=== PATIENT | male | born 1995 | race Caucasian/White ===

== ENCOUNTER → 2021-11-10 13:21 | Outpatient (BNVA) | payer MEDICAID, SELFPAY | PROVIDERS: PCP Nurse Practitioner Family; Visit Provider Surgery | DX: Z13.89 Encounter for screening for other disorder (principal) ==

== ENCOUNTER → 2021-12-13 14:42 | Outpatient (BNVA) | payer MEDICAID, SELFPAY | PROVIDERS: PCP Nurse Practitioner Family; Visit Provider Surgery | DX: K40.20 Bilateral inguinal hernia, without obstruction or gangrene, not specified as recurrent (principal) | CPT/HCPCS: 99202 ==

== ENCOUNTER 2022-01-18 15:06 | Outpatient (REF) | payer MEDICAID, SELFPAY ==
--- NOTE | ~2022-01-18 | US_ITS ---
EXAMINATION: US SOFT TISSUE CLINICAL INFORMATION: 26-year-old male with fullness right groin, discomfort left groin. History hernia repair over 10 years ago. COMPARISON: None TECHNIQUE: Ultrasound of the bilateral groin is performed using linear transducer. Patient is imaged supine and upright. Patient imaged without and with Valsalva. FINDINGS: There is no cystic or solid mass. No skin thickening or edema tracking in soft tissue planes. No lymphadenopathy demonstrated. Mild anterior convexity by 1 cm is demonstrated right inguinal region approximately 3.3 cm across. It is uncertain if this is a hernia or mild laxity near the inguinal ring. Focal anterior convexity seen left inguinal region by under 1 cm and 1.6 cm across. It is uncertain if this is a hernia or mild laxity near the inguinal ring. US/US pelvic limited IMPRESSION: Broad-based anterior convexity right inguinal region and focal anterior convexity left inguinal region. It is uncertain if the bilateral findings represent recurrent hernia or mild laxity near the inguinal ring. Consider CT or MRI for further characterization.
== END 2022-01-18 15:07 | disposition home or self-care (01) ==
LOC: HO.HMGCX 15:06
PROVIDERS: Visit Provider Surgery
DX: K40.20 Bilateral inguinal hernia, without obstruction or gangrene, not specified as recurrent (principal)
CPT/HCPCS: 76857

== ENCOUNTER → 2022-02-02 09:12 | Outpatient (BNVA) | payer MEDICAID, SELFPAY | PROVIDERS: PCP Nurse Practitioner Family; Visit Provider Surgery | DX: K40.90 Unilateral inguinal hernia, without obstruction or gangrene, not specified as recurrent (principal) | CPT/HCPCS: 99212 ==

== ENCOUNTER 2022-02-06 07:17 | Day surgery (SDC) | payer MEDICAID, SELFPAY ==
[2022-02-06] VITALS (9 sets, daily range): BP systolic 135–169; BP diastolic 94–111; PULSE 62–97; RESP 16–24; TEMP 36.1–37.1; O2SAT 95–100; BMI 42.0
[2022-02-06] MEDS: Lactated Ringers 1,000 ML 100 ML IVCONT (08:03)
--- NOTE | 2022-02-06 08:20 | HO.ANESPROP2 ---
HPI - Anesthesia Eval Consult details Narrative: 26 yo male patient for Right Inguinal hernia repair with mesh PMFSH Active Problems Active Problems: All Active Problems (Updated 02/02/22 @ 09:55 by Andrew Thomas MD) Right inguinal hernia (Acute) Bilateral inguinal hernia (Acute) Thrombocytosis (Acute) Snoring with h/o apneic episodes.Never had sleep study Morbid obesity No previous blood transfusions H/o bilateral shoulder pain Pre-diabetes Past Medical History Medical History Acanthosis nigricans Agoraphobia Generalized anxiety disorder with panic attacks Hx of scoliosis Hyperlipidemia Sickle cell trait Family History Family History Mother Uterine cancer Family history of problems with anesthesia: No Surgical History Surgical History History of bilateral inguinal hernia repair History of oral surgery History of Problems with Anesthesia: No Social History Social History Household Members: Family Housing: House Alcohol intake: current Alcohol intake frequency: holidays/special occasions only Patient Tobacco Use Status: Never used Tobacco Second Hand Smoke Exposure: No Use of substances other than those prescribed or required for medical reasons: No Are you DNR?: No Advance Directives: No Advance Directives Information Provided: Yes Advance Directives on File: No Current occupational status: unemployed Meds Allergies Allergy/AdvReac Type Severity Reaction Status Date / Time lactose Allergy Diarrhea Verified 02/02/22 09:18 Active Medications: Current Medications Lactated Ringer's (Lr) 1,000 mls @ 100 mls/hr IVCONT .Q10H KATIE Last Admin: 02/06/22 08:03 Dose: 100 mls/hr Home Medications Medication Instructions Recorded Confirmed Last Taken Type Vitamin D3 25 mcg PO DAILY 12/13/21 02/02/22 Unknown History blood pressure kit med and lrg 12/13/21 02/02/22 Unknown History divalproex 250 mg tablet,extended 2 tab PO DAILY 12/13/21 02/02/22 Unknown History release 24 hr famotidine 10 mg PO DAILY 12/13/21 02/02/22 Unknown History hydrocortisone 1 % topical cream 1 ea topical BID PRN Dry Skin 12/13/21 02/02/22 Unknown History with perineal applicator hydroxyzine HCl 10 mg PO BID PRN Anxiety 12/13/21 02/02/22 Unknown History ibuprofen 600 mg tablet 1 tab PO TID 12/13/21 02/02/22 Unknown History lisinopril 10 mg tablet 1 tab PO DAILY 12/13/21 02/02/22 Unknown History Exam Exam Date and Time: February 06, 2022 0820 Height,Weight and Vital Signs: Height 5 ft 11 in Weight 136.531 kg Last Vital Signs Temp 97.0 F 02/06/22 07:58 Pulse 88 02/06/22 07:58 Resp 16 02/06/22 07:58 BP 144/94 H 02/06/22 07:58 Pulse Ox 98 02/06/22 07:58 O2 Del Method 02/06/22 07:58 Airway Mallampati Class: III (Fat neck) TM Dist: >3cm Neck ROM: Full Loose/Missing/Broken Teeth: No Heart: RRR Lungs: CTAB Assessment and Plan Assessment Anesthesia Assessment: Anesthesia Plan Discussed and Chart Reviewed Final Anesthetic Review Family History of Problems with Anesthesia: No History of Problems with Anesthesia: No NPO: Yes ASA Class: III Final Preanesthetic Review: No Changes in Pt Med Stat, Meds/Allgs Chart Reviewed, Consent Obtained/Reviewed and Anes Risks/Benef Reviewed Patient Risk: Intermediate Procedure Risk: Low Assessment/Block/Sedation in SS: Assess/Block/Sedation-SS Anesthetic Plan Anesthetic Plan: GA Disposition: Standard PACU
--- NOTE | 2022-02-06 08:24 | MHC.SHP ---
Pre-Procedural Eval Section A Date of Service: 02/06/22 The patient is an INPATIENT: No Changes since office visit: Yes Patient answered all questions; No Cold of Flu in the past 2 weeks, No New Medical Problems and No Changes in Medication The History & Physical has been completed within 30 days and I have reviewed it.: Yes Section B Chief Complaint: Unilateral inguinal hernia, without obstruction Allergies: Allergies Allergy/AdvReac Type Severity Reaction Status Date / Time lactose Allergy Diarrhea Verified 02/02/22 09:18 Plan Diagnosis/Plan: Unchanged I have reviewed the history and physical and performed a pertinent physical examination on my patient. No changes have occurred unless specified.
--- NOTE | 2022-02-06 10:13 | W.PM.OPN ---
Operative Note Operative Note Date of Service: 02/06/22 Narrative: Preoperative diagnosis: recurrent right inguinal hernia Postoperative diagnosis: same Procedure: repair of recurrent right inguinal hernia with mesh Surgeon: Andrew Thomas MD Hospice Art Therapist: Adrianna Ramsay PA-C; GEETA Helton Anesthesia: general LMA Indications for procedure: 26-year-old male patient with a previous history of a bilateral inguinal hernia as a child now presenting with a painful lump in the right groin. The hernia increases in size with lifting and straining and reduces with light pressure. Operative findings: Indirect right inguinal hernia sac Specimen: hernia sac right side Estimated blood loss: 5 mL Complications: none Procedure details: patient was brought to the OR placed in the supine position. After administering general anesthesia the patient's abdomen was prepped with ChloraPrep and draped in a sterile fashion. A surgical time-out was called the consent confirmed. Patient received preoperative antibiotics and Venodyne boots were in place. Local anesthesia consisting of 0.5% Sensorcaine was then infiltrated over the right inguinal ligament. Incision was then made over the right inguinal ligament carried out through subcutaneous tissue and up to the external oblique aponeurosis. Additional local was infiltrated behind the aponeurosis. This was then incised with a scalpel wide with the Metzenbaum scissors. The spermatic cord was then dissected free from the surrounding inguinal canal and retracted with a [place] drain. The floor of the inguinal canal was found to be intact without a direct hernia. Fibers of the cremasteric muscle were then and a indirect sac identified this was dissected free from the surrounding cord structures down to the internal ring. The sac was opened. Incarcerated omental fat was noted within the hernia sac. This was freed from the surrounding sac and return to the abdominal cavity. The sac was then ligated at the base and resected. The sac was sent as a specimen to pathology. The internal oblique aponeurosis and transversalis aponeurosis were then incised with electrocautery in the preperitoneal space entered. This was then widened with a open Ray-Parminder sponge. A large extended PHS mesh was then obtained. The circular underlay was deployed into the preperitoneal space. The overlay was then secured with the largest limb extending laterally. The overlay was secured to the pubic tubercle, conjoined tendon, and shelving edge of the inguinal ligament using 0 Polysorb sutures. A slit was made in the mesh in the mesh wrapped around the spermatic cord at the internal ring. This was then secured to the shelving edge using the 0 Polysorb suture. The internal ring was loose enough to allow the tip of an index finger. Wounds were then irrigated with saline solution and suctioned dry. No bleeding could be identified. 4.5 mL of Zenrelef was then instilled over the mesh. External oblique aponeurosis was then closed using a running 2 0 Polysorb suture. Additional 4 mL of Zenrelef was then applied over the external oblique aponeurosis. Rio's tissue was then reapproximated using interrupted 3-0 Polysorb sutures. Dermis was reapproximated using interrupted 3-0 Polysorb sutures. Skin was closed using a running subcuticular 4-0 Polysorb suture. Steri-Strips, 2 x 2 gauze and Tegaderm were then applied. The patient tolerated the procedure well. Sponge, instrument, and needle counts reported as correct. The patient was transferred to PACU in stable condition.
[2022-02-06] MEDS: Acetaminophen 325 MG TABLET 975 MG PO (11:03)
[2022-02-06] MEDS: oxyCODONE HCl Immed Release 5 MG TABLET 10 MG PO (11:03)
[2022-02-06] MEDS: fentaNYL citrate/PF 100 MCG/2 ML VIAL 50 MCG IVPUSH (11:08)
== END 2022-02-06 12:42 | disposition home or self-care (01) ==
PROVIDERS: PCP Nurse Practitioner Family; Visit Provider Surgery
PROC: (CPT 49521; principal; 2022-02-06 09:10)
DX: K40.91 Unilateral inguinal hernia, without obstruction or gangrene, recurrent (principal); L83 Acanthosis nigricans; E78.5 Hyperlipidemia, unspecified; D57.3 Sickle-cell trait; F40.01 Agoraphobia with panic disorder; F41.1 Generalized anxiety disorder; Z79.899 Other long term (current) drug therapy; Z98.890 Other specified postprocedural states
CPT/HCPCS: 49521; 88302; C1781; C9088; J0690; J2250; J2405; J2795; J3010

== ENCOUNTER 2022-06-23 04:06 | Emergency (ER) | payer MEDICAID, SELFPAY ==
[2022-06-23 04:15] VITALS: BP 142/96; PULSE 81; RESP 20; TEMP 36.5; O2SAT 97; BMI 41.8
[2022-06-23 04:35] LABS: IDNOW Serial# 6674DD1D; Strep A Nucleic Acid Negative (Negative)
[2022-06-23 05:03] LABS: Influenza A PCR NEGATIVE (Negative); Influenza B PCR NEGATIVE (Negative); Resp Syncy Virus RNA Qual PCR NEGATIVE (Negative); SARS COV2 PCR INHOUSE NEGATIVE (Negative)
--- OUTSIDE RECORDS SUMMARY | 2022-06-23 05:12 | XMS_ITS | Continuity of Care Document ---
:1995 Author Organization [facility] Address [address] [place] [id number] Care Team Providers Name Role Phone Marysol RUIZ, Kinjal Primary Care Physician Encounter [facility] [place] Date(s): 03/14/22 - 04/19/[address] [id number] Attending Physician: Kinjal Gregg NP Admitting Physician: Kinjal Gregg NP Referring Physician: Kinjal Gregg NP Patient Care team information PersonnelName: Kinjal Gregg NP Address: Address: [address] [place] [id number]
--- NOTE | 2022-06-23 06:03 | ED_ITS ---
HPI - URI/Sore Throat General Chief Complaint: Upper Respiratory Symptoms Stated Complaint: cough Time Seen by Provider: 06/23/22 05:59 Source: patient Mode of arrival: ambulatory Limitations: no limitations History of Present Illness HPI Narrative: Patient complaining of cold symptoms congestion cough for last 2- 3 days no fever no chills no shortness of breath Related Data Home Medications Medication Instructions Recorded Confirmed Vitamin D3 25 mcg PO DAILY 12/13/21 03/22/22 blood pressure kit med and lrg 12/13/21 03/22/22 divalproex 250 mg tablet,extended 2 tab PO DAILY 12/13/21 03/22/22 release 24 hr famotidine 10 mg PO DAILY 12/13/21 03/22/22 hydrocortisone 1 % topical cream 1 ea topical BID PRN Dry Skin 12/13/21 03/22/22 with perineal applicator hydroxyzine HCl 10 mg PO BID PRN Anxiety 12/13/21 03/22/22 ibuprofen 600 mg tablet 1 tab PO TID 12/13/21 03/22/22 lisinopril 10 mg tablet 1 tab PO DAILY 12/13/21 03/23/22 Previous Rx's Medication Instructions Recorded ferrous sulfate 325 mg (65 mg 325 mg PO DAILY #90 tabs 03/22/22 iron) tablet (iron) amoxicillin 875 mg-potassium 1 tab PO BID #20 tabs 06/23/22 clavulanate 125 mg tablet benzonatate 200 mg capsule 200 mg PO TID PRN cough #30 caps 06/23/22 Allergies Allergy/AdvReac Type Severity Reaction Status Date / Time lactose Allergy Diarrhea Verified 06/23/22 04:18 Review of Systems Review of Systems: Yes all other systems are reviewed and are negative [facility] Past Medical History Medical History Acanthosis nigricans Agoraphobia Generalized anxiety disorder with panic attacks Hx of scoliosis Hyperlipidemia Sickle cell trait Surgical History History of bilateral inguinal hernia repair History of oral surgery History of right inguinal hernia repair (02/06/22) Family History Family History Mother Uterine cancer Social History Social History Household Members: Family Housing: House Alcohol intake: current Alcohol intake frequency: holidays/special occasions only Patient Tobacco Use Status: Never used Tobacco Second Hand Smoke Exposure: No Advance Directives: No Advance Directives Information Provided: Yes Current occupational status: unemployed Physical Exam Vital Signs: Vital Signs: Last Vital Signs Temp 97.7 F 06/23/22 04:15 Pulse 81 06/23/22 04:15 Resp 20 06/23/22 04:15 BP 142/96 H 06/23/22 04:15 Pulse Ox 97 06/23/22 04:15 O2 Del Method 06/23/22 04:15 BMI result Body Mass Index 41.8 Appearance: Alert. Oriented X3. No acute distress. Eyes: PERRLA, No Nystagmus ENT: Pharynx normal. Oral Mucosa moist Neck: Normal inspection. Neck supple. CVS: Normal heart rate and rhythm. Pulses normal. Respiratory: No respiratory distress. Equal air entry bilateral, no wheezing/r ales/rhonchi Abdomen: Soft and nontender. Bowel sounds are present, no mass palpable, no CVA tenderness Skin: Skin warm and dry. Normal skin color. Normal skin turgor. Extremities: No lower extremity edema. No calf tenderness Neuro: Oriented X 3. No motor deficit. No sensory deficit.No cerebellar signs , cranial nerves II-XII intact Medical Decision Making Medical Decision Making [facility] Narrative: Patient has acute bronchitis discharge patient home on Augmentin and cough drops Lab Data [facility] Lab Attestation statement: I reviewed the patient's lab results. Labs: Lab Results 06/23/22 06/23/22 Range/Units 04:21 04:21 Influenza Type A (PCR) NEGATIVE (Negative) Influenza Type B (PCR) NEGATIVE (Negative) RSV RNA Qual (PCR) NEGATIVE (Negative) SARS-CoV-2 RNA (RT-PCR) NEGATIVE (Negative) S. pyogenes GrpA DIMAS Negative (Negative) Discharge Plan Discharge Clinical Impression: Bronchitis Patient Disposition: Home, Self-Care Instructions: Acute Bronchitis (ED) Additional Instructions: Take antibiotic as prescribed Cough drops as prescribed Prescriptions: New benzonatate 200 mg capsule 200 mg PO TID PRN (Reason: cough) Qty: 30 0RF amoxicillin-pot clavulanate 875-125 mg tablet 1 tab PO BID Qty: 20 0RF No Action lisinopril 10 mg tablet 1 tab PO DAILY ibuprofen 600 mg tablet 1 tab PO TID hydrocortisone 1 % cream with perineal applicator 1 ea topical BID PRN (Reason: Dry Skin) divalproex 250 mg tablet extended release 24 hr 2 tab PO DAILY Vitamin D3 75 mcg tablet 25 mcg PO DAILY (DME) blood pressure kit med and lrg famotidine 20 mg tablet 10 mg PO DAILY hydroxyzine HCl tablet 10 mg PO BID PRN (Reason: Anxiety) ferrous sulfate [iron] 325 mg (65 mg iron) Tablet 325 mg PO DAILY Qty: 90 3RF
[2022-06-23] MEDS: Benzonatate 100 MG CAPSULE 200 MG PO (06:14)
[2022-06-23] MEDS: Amoxicillin/Potassium Clav 875 MG TABLET PO (06:15)
== END 2022-06-23 06:19 | disposition home or self-care (01) ==
PROVIDERS: Emergency Provider Internal Medicine
DX: J40 Bronchitis, not specified as acute or chronic (principal); R05.9 Cough, unspecified; Z20.828 Contact with and (suspected) exposure to other viral communicable diseases; Z20.822 Contact with and (suspected) exposure to COVID-19
CPT/HCPCS: 0241U; 36415; 87651; 99282; 99283

== ENCOUNTER 2023-02-03 17:42 | Emergency (ER) | payer MEDICAID, SELFPAY ==
[2023-02-03 18:03] VITALS: BP 138/93; PULSE 81; RESP 18; TEMP 36.2; O2SAT 97; BMI 42.7
--- NOTE | 2023-02-03 18:05 | ED.GENADULT ---
HPI - General Adult General Chief complaint: Ear Problems Stated complaint: left ear pain,back pain Time Seen by Provider: 02/03/23 18:08 Source: patient Mode of arrival: ambulatory Limitations: no limitations History of Present Illness HPI narrative: 27yo male previously healthy here with complaints of bilateral ear pain left greater then right with pressure. No itching/drainage from the ears. No fevers, chills, URI symptoms. Has been on augmentin x 4 days with continued symptoms. Also acute on chronic upper back pain with no known injury or trauma. Currently in physical therapy for this. No radiation of pain. No numbness/tingling/weakness of the UE/LE. No incontinence of urine/stool. No fever. Has not tried any over the counter medications for this pain. Related Data Home Medications Medication Instructions Recorded Confirmed Vitamin D3 25 mcg PO DAILY 12/13/21 03/22/22 blood pressure kit med and lrg 12/13/21 03/22/22 divalproex 250 mg tablet,extended 2 tab PO DAILY 12/13/21 03/22/22 release 24 hr famotidine 10 mg PO DAILY 12/13/21 03/22/22 hydrocortisone 1 % topical cream 1 ea topical BID PRN Dry Skin 12/13/21 03/22/22 with perineal applicator hydroxyzine HCl 10 mg PO BID PRN Anxiety 12/13/21 03/22/22 ibuprofen 600 mg tablet 1 tab PO TID 12/13/21 03/22/22 lisinopril 10 mg tablet 1 tab PO DAILY 12/13/21 03/23/22 Previous Rx's Medication Instructions Recorded ferrous sulfate 325 mg (65 mg 325 mg PO DAILY #90 tabs 03/22/22 iron) tablet (iron) amoxicillin 875 mg-potassium 1 tab PO BID #20 tabs 06/23/22 clavulanate 125 mg tablet benzonatate 200 mg capsule 200 mg PO TID PRN cough #30 caps 06/23/22 ibuprofen 600 mg tablet 600 mg PO Q8H PRN pain #30 tabs 02/03/23 ofloxacin 0.3 % ear drops 10 drp otic (ears) DAILY 7 days 02/03/23 #10 mL Allergies Allergy/AdvReac Type Severity Reaction Status Date / Time lactose Allergy Diarrhea Verified 06/23/22 04:18 Review of Systems Review of Systems: Yes all other systems are reviewed and are negative Constitutional: Constitutional: Reports no additional constitutional complaints, Denies body ache(s), Denies chills, Denies fever(s), Denies headache(s) and Denies weakness Eyes: Eyes: Reports no additional eye complaints and Denies change in vision ENT: Reports system reviewed and no additional complaints, except as documented, Denies dizziness, Reports otalgia, Denies headache(s), Denies nasal congestion, Denies nasal discharge and Denies neck pain Cardiovascular: Cardiovascular: Reports no additional cardiovascular complaints, Denies chest pain, Denies leg edema and Denies dyspnea Respiratory: Respiratory: Reports no additional respiratory complaints, Denies cough and Denies dyspnea Gastrointestinal: Gastrointestinal: Reports no additional gastrointestinal complaints, Denies abdominal pain, Denies diarrhea, Denies nausea and Denies vomiting Genitourinary: Genitourinary: Denies urinary incontinence Musculoskeletal: Musculoskeletal: Reports no additional musculoskeletal complaints, Reports back pain, Denies arthralgias, Denies joint swelling, Denies neck pain, Denies numbness and Denies tingling Integumentary/Breasts: Skin/Breast: Reports system reviewed and no additional complaints, except as docu and Denies rash Neurologic: Reports system reviewed and no additional complaints, except as documented, Denies dizziness, Denies headache(s), Denies numbness, Denies tingling and Denies weakness PMFSH Past Medical History Attestation statement: The following information was validated with the patient. Source: old records reviewed and nursing notes reviewed Medical History Acanthosis nigricans Agoraphobia Generalized anxiety disorder with panic attacks Hx of scoliosis Hyperlipidemia Sickle cell trait Surgical History History of bilateral inguinal hernia repair History of oral surgery History of right inguinal hernia repair (02/06/22) Family History Family History Mother Uterine cancer Social History Social History Household Members: Family Housing: House Alcohol intake: current Alcohol intake frequency: holidays/special occasions only Patient Tobacco Use Status: Never used Tobacco Second Hand Smoke Exposure: No Current occupational status: unemployed Physical Exam ED Vital Signs: Vital Signs - 24 hr 02/03/23 18:03 Temperature 97.1 F Pulse Rate 81 Respiratory Rate 18 Blood Pressure 138/93 H Pulse Oximetry 97 Oxygen Delivery Method Room Air BMI result Body Mass Index 42.7 Const General: cooperative, healthy appearing, comfortable and no acute distress Orientation/consciousness: patient oriented x3 Limitations: no limitations HENMT Head: Yes normal to inspection Ears: hearing grossly normal bilaterally, mastoids normal, no periauricular adenopathy, Abnormal EAC present erythema, edema, EAC tenderness and otic discharge; no foreign body and TM abnormal bulging and erythematous; not perforated General nose exam: Normal external nose present Face and sinus: Yes normal facial exam Throat: Yes posterior oropharynx normal, Yes tonsils normal and Yes uvula midline Eyes General: appearance normal, both eyes and all related structures Pupils: Equal, round and reactive pupils present Neck Neck: Yes normal visual inspection, Yes full ROM, Yes no lymphadenopathy and Yes no meningeal signs Chest Chest palpation & inspection: normal inspection of the chest Resp Effort & Inspection: normal respiratory effort Auscultation: clear to auscultation bilaterally Cardio Rate: regular rate Rhythm: regular rhythm Peripheral pulses: Peripheral pulses 2+ throughout GI Inspection: Yes normal to inspection Back/Spine/Pelvis Other: TTP to upper back between the scapular area. No midline tenderness/step offs or deformities. Pain worsened with flexion/extension of spine Thoracic/Lumbar Spine: thoracic and lumbar spine normal to inspection Skin General skin exam: no rashes or lesions noted Neuro General: patient oriented x3, moves all extremities and no meningeal signs Cranial nerves: Yes CN's II-XII intact bilaterally, Yes Equal, round and reactive pupils present, Yes Bilaterally intact EOM present, Yes Nystagmus not present and Yes Normal facial strength present Cognition (Neuro): normal cognition Gait exam (Neuro): Normal gait present Motor exam (neuro): 5/5 motor strength present throughout Sensory Exam: Normal double simultaneous stimulation for sensation Extrem General: Yes normal to inspection Medical Decision Making Medical Decision Making MDM Narrative: 27yo male previously healthy here with complaints of bilateral ear pain left greater then right with pressure. No itching/drainage from the ears. No fevers, chills, URI symptoms. Has been on augmentin x 4 days with continued symptoms. Also acute on chronic upper back pain with no known injury or trauma. Currently in physical therapy for this. No radiation of pain. No numbness/tingling/weakness of the UE/LE. No incontinence of urine/stool. No fever. Has not tried any over the counter medications for this pain. On exam bilateral AOM and otitis externa. No evidence of malignant otitis externa, mastoiditis. Recommend continue augmentin, add ofloxacin gtt TTP to upper back soft tissues with no midline tenderness/step offs or deformities with normal neuro exam. Likely MS. Will treat with NSAIDS. Reviewed worrisome signs/symptoms with patient and when to seek additional care. Comfortable with discharge home Differential Diagnosis Differential Diagnoses: The differential diagnosis associated with the presentation includes see discussion above normal neuro exam with no red flag symptoms, no h/o IVDA or immunocompromized state or h.o trauma to suggest epidural abscess, cord compression/caude equina, malignancy, fracture Admission/Observation Consideration of admission/observation: Escalation of care including admission/observation considered No neuro deficits or red flag symptoms to suggest need for urgent MRI, NSY eval Tests considered The following testing was considered but not selected: MRI-see discussion above Prescription Management I considered prescription management with: Pain Medication and Antibiotic see discussion above Discharge Plan Discharge Clinical Impression: Otitis media, Otitis externa, Pain, upper back Patient Disposition: Home, Self-Care Instructions: Otitis Externa (ED), Ear Infection (ED), Back Pain (ED) Additional Instructions: Heat or ice to the back Gentle stretching No heavy lifting or bending Continue the oral antibiotic Prescriptions: New ofloxacin 0.3 % drops 10 drp otic (ears) DAILY 7 Days Qty: 10 0RF ibuprofen 600 mg tablet 600 mg PO Q8H PRN (Reason: pain) Qty: 30 0RF No Action lisinopril 10 mg tablet 1 tab PO DAILY ibuprofen 600 mg tablet 1 tab PO TID hydrocortisone 1 % cream with perineal applicator 1 ea topical BID PRN (Reason: Dry Skin) divalproex 250 mg tablet extended release 24 hr 2 tab PO DAILY Vitamin D3 75 mcg tablet 25 mcg PO DAILY (DME) blood pressure kit med and lrg famotidine 20 mg tablet 10 mg PO DAILY hydroxyzine HCl tablet 10 mg PO BID PRN (Reason: Anxiety) ferrous sulfate [iron] 325 mg (65 mg iron) Tablet 325 mg PO DAILY Qty: 90 3RF benzonatate 200 mg capsule 200 mg PO TID PRN (Reason: cough) Qty: 30 0RF amoxicillin-pot clavulanate 875-125 mg tablet 1 tab PO BID Qty: 20 0RF Referrals: [facility] [Primary Care Provider] - 10 days Interventions: ED Discharge Assessment Last Done: 02/03/23 18:14
== END 2023-02-03 18:16 | disposition home or self-care (01) ==
LOC: HO.ED 18:15
PROVIDERS: Emergency Provider Emergency Medicine
DX: H66.93 Otitis media, unspecified, bilateral (principal); H60.503 Unspecified acute noninfective otitis externa, bilateral; M54.6 Pain in thoracic spine; Z79.899 Other long term (current) drug therapy
CPT/HCPCS: 99282; 99283

== ENCOUNTER 2023-02-08 11:00 | Outpatient (RCR) | payer MEDICAID, SELFPAY | END 2023-03-16 10:48 | disposition home or self-care (01) | LOC: HO.PT 11:00 | PROVIDERS: PCP Registered Nurse; Visit Provider Registered Nurse | DX: M54.50 Low back pain, unspecified (principal); M25.562 Pain in left knee | CPT/HCPCS: 97110; 97162 ==

== ENCOUNTER 2023-04-09 11:27 | Outpatient (REF) | payer MEDICAID, SELFPAY ==
[2023-04-09 15:12] LABS: Anion Gap 12 (12-20); Blood Urea Nitrogen 12 mg/dL (9-16); Calcium 9.9 mg/dL (8.4-10.2); Carbon Dioxide 26 mmol/L (22-29); Chloride 106 mmol/L (96-108); Cholesterol 175 mg/dL (<200); Estimated Glomerular Filt Rate > 60; Glucose Fasting 100 mg/dL (60-99); HDL Cholesterol 32 mg/dL (>40); LDL Cholesterol Calculated 121 mg/dL (<100); Potassium 3.7 mmol/L (3.3-5.1); Sodium 140 mmol/L (135-145); Triglycerides 114 mg/dL (<150)
[2023-04-09 15:14] LABS: Estimated Average Glucose 105 mg/dL; Hemoglobin A1c % 5.3 % (<6.0)
[2023-04-09 16:35] LABS: CT PCR NOT DETECTED (Not Detect.); NG PCR NOT DETECTED (Not Detect.)
[2023-04-10 09:29] LABS: HBS Num1 4.19 mIU/mL (0-7.99); HBsAGNum1 0.43 S/CO (0.00-0.99); HIV AB/AG Nonreactive (Nonreactive); HIV Num 1 0.05 S/CO (0.00-0.99); Hepatitis B Core Antibody Nonreactive (Nonreactive); Hepatitis B Surface Antigen Negative (Negative); ~Hepatitis B Surface Antibody NONREACTIVE (Nonreactive); ~Hepatitis C Antibody Nonreactive (Nonreactive)
[2023-04-11 07:53] LABS: RPR Rapid Plasma Reagin NON-REACTIVE (NON-REACTIVE)
== END 2023-04-09 11:28 | disposition home or self-care (01) ==
LOC: HO.CHCLDS 11:27
PROVIDERS: Visit Provider Registered Nurse
DX: Z00.00 Encounter for general adult medical examination without abnormal findings (principal); Z11.4 Encounter for screening for human immunodeficiency virus [HIV]; Z11.3 Encounter for screening for infections with a predominantly sexual mode of transmission
CPT/HCPCS: 0353U; 80048; 80061; 83036; 86592; 86704; 86706; 86803; 87340; 87389

== ENCOUNTER 2023-09-04 10:04 | Outpatient (REF) | payer MEDICAID, SELFPAY ==
[2023-09-04 14:06] LABS: MANUAL DIFF FLAG NO
[2023-09-04 14:08] LABS: Basophils Percent Auto 0.5 % (0-2); Eosinophils Absolute Auto 0.2 X10*3/uL (0.0-0.4); Eosinophils Percent Auto 2.5 % (0-4); Hematocrit 40.6 % (42.0-52.0); Hemoglobin 13.8 g/dl (14.0-18.0); Imm Gran Abs Auto 0.03 X10*3/uL (0.00-0.03); Imm Gran Pct Auto 0.4 % (0.0-0.4); Lymphocytes Absolute Auto 2.6 X10*3/uL (1.2-4.9); Mean Corpuscular Hemoglobin 27.2 pg (27.0-33.0); Mean Corpuscular Volume 80.1 fL (80.0-98.0); Mean Platelet Volume 10.3 fL (9.4-12.4); Monocytes Absolute Auto 0.6 X10*3/uL (0.1-1.2); Neutrophils Absolute Auto 4.5 x10*3/uL (2.0-8.3); Neutrophils Percent Auto 56.6 % (45-73); Platelet Count 374 X10*3/uL (160-400); Red Blood Count 5.07 X10*6/uL (4.60-5.80); Red Cell Distribution Width 13.2 % (11.0-16.0); White Blood Count 7.9 X10*3/uL (4.8-10.8)
[2023-09-04 14:48] LABS: Valproate 36.6 mcg/mL (50.0-100.0)
[2023-09-04 14:51] LABS: Alanine Aminotransferase 40 U/L (0-40); Albumin Level 3.8 g/dL (3.5-5.0); Alkaline Phosphatase 101 U/L (39-117); Aspartate Amino Transferase 21 U/L (5-37); Bilirubin Direct 0.1 mg/dL (0.0-0.5); Bilirubin Total 0.3 mg/dL (0.0-1.0); Total Protein 7.2 g/dL (6.5-8.0)
== END 2023-09-04 10:05 | disposition home or self-care (01) ==
LOC: HO.CHCLDS 10:04
PROVIDERS: Visit Provider Nurse Practitioner Family
DX: F39 Unspecified mood [affective] disorder (principal)
CPT/HCPCS: 36415; 80076; 80164; 85025

== ENCOUNTER 2024-08-15 10:54 | Outpatient (REF) | payer MEDICAID, SELFPAY ==
--- OUTSIDE RECORDS SUMMARY | 2024-08-15 12:32 | XMS_ITS | Encounter Summary ---
Author Organization [employer] Address [address] [place] [address] [address] [place] [address] Care Team Providers Care Manager Assurance Name Role Phone Katelynn Merida Primary Care Provider [phone] Darvin Paul Unavailable Unavailable Reason for Visit * Reason Comments Care Coordination CHW outreach for SDO H food needs-referral completed Encounter Details Date Type Department Care Team (Latest Contact Info) Description 08/15/2024 Patient Outreach [facility] MED & PEDS [address] [place] [address] Katelynn Merida FNP [address] [place] [address] Care Coordination (CHW outreach for SDOH food needs-referral completed /) Social History Tobacco Use Types Packs/Day Years Used Date Smoking Tobacco: Never Smokeless Tobacco: Never Alcohol Use Standard Drinks/Week Comments Yes 0 (1 standard drink = 0.6 oz pur e alcohol) Occassionally Alcohol Answer Date Recorded Frequency of Alcohol Consumption Not on file 04/09/2023 Average Number of Drinks Not on file 023 Frequency of Binge Drinking Not on file 03/19 Score 0 04/09/2023 Depression Answer Date Recorded Patient Health Questionnaire-9 Score 7 03/03/2024 Patient Health Questionnaire-9 Score 7 03/03/2024 Last PHQ-9: Questionnaire Data Not on file 0 03/03/2024 Housing Stability Answer Date Recorded What is your housing situation today? I have chriss leary 08/15/[address] you li ve. Do you have problems with any of the following? Inadequate heat;I am not sure 08/15/2024 Food Insecurity Answer Date Recorded Within the past 12 months, y ou worried that your food would run out before you got money to buy more: Never True 08/15/2024 Within the past 12 months,th e food you bought just didn't last and you didn't have enough money to get more: Never True Transportation Answer Date Recorded In the past 12 months, has l ack of transportation kept you from medical appts, meetings, work or from getting things needed for daily living? No 08/15/2024 Utilities Answer Date Recorded In the past 12 months, has t he electric, gas, oil or water company threatened to shut off services in your home? I am not sure 08/15/2024 Depression Answer Date Recorded Patient Health Questionnaire-2 Score 3 03/03/2024 Internet Access Answer Date Recorded Internet Access Q1 Yes 08/15/2024 Internet Access Q2 Not on file 08/15/2024 Sex and Gender Information Value Date Recorded Sex Assigned at Male 04/17/2022 10:36 AM EDT Legal Sex Male 10:36 AM EDT Gender Identity Male 04/17/2022 10:36 AM EDT Sexual Orientation Straight 04/17/2022 10 :36 AM EDT documented as of this encounter Progress Notes * Marshall Hogue - 08/15/2024 11:23 AM EST CHW Marshall Hogue, placed outbound call to patient for assistance with SDOH as a referral was received by the provider. Patient's name and were confirmed. Patient screened positive for the following SDOH food insecurities. CHW referral patient to the local list of pantries in the area for help. Patient verbalizes understanding, and able to agree with plan to follow up. Patient educated on ex tended clinic hours on Mondays through Wednesdays, and Walk-In Urgent Care Located in [facility].Patient provided with after-hours line for [facility], , which offer night time triage serviceand option to transfer to environmental services technician provider if needed. documented in this encounter Plan of Treatment Not on file documented as of this encounter Visit Diagnoses Not on filedocumented in this encounter Additional Health Concerns Assessment Noted Time PHQ-9 Depression Total Score: 7 03/03/20 24 1:35 PM EDT documented as of this encounter Care Teams Manager Assurance Relationship Specialty Start Date End Date Katelynn Merida FNP [address] [place] [address] PCP - General Family Medicine 02/12/22 Darvin Paul FNP [address] [place] [address] Nurse Practitioner Family Medicine 05/22/23 documented as of this encounter
--- OUTSIDE RECORDS SUMMARY | 2024-08-15 12:32 | XMS_ITS | Clinical Summary ---
Author Organization [employer] Address [address] [facility] 7[address] [place] [address] Care Team Providers Care Improvement Intern Name Role Phone Katelynn Merida Primary Care Provider [phone] Darvin PaulP Unavailable Unavailable Allergies Active Allergy Reactions Criticality Noted Date Comments Lactose Diarrhea 12/01/2021 Medications * This document contains information received from the source organization and may not represent a complete record from that organization. lidocaine (Lidoderm) 5 % patch Apply 1 patch topically in the morning. Remove & discard patch within 12 hours or as directed by MD. 30 patch 3 12/08/19 23 Active Blood Pressure Monitor kit Use to check blood pressure as directed and when symptomatic. Dx: hypertension . 1 kit 09/06/19 24 Active divalproex (Depakote ER) 250 MG 24 hr tabletIndicatio ns:Mood disorder (CMS/HCC) Take 2 tablets (500 mg) by mouth 2 times daily. Do not crush, chew, or split. 360 tablet 3 10/18/19 24 Active lisinopril 20 MG tabletIndicatio ns:Primary hypertension TAKE 1 TABLET (20 MG) BY MOUTH IN THE MORNING. FOR BLOOD PRESSURE 90 tablet 3 07/18/19 25 Active hydrocortisone 2.5 % cream Apply pea sized amount to skin bid for 1 week 15 g 08/15/19 25 Active divalproex (Depakote ER) 250 MG 24 hr tabletIndicatio ns:Mood disorder (CMS/HCC) Take 3 tablets orally every day. Do not crush, chew, or split. 270 tablet 1 08/08/19 23 Discontinued(Re order (will not trigger notification to Pharmacy)) lisinopril 20 MG tabletIndicatio ns:Primary hypertension TAKE 1 TABLET (20 MG) BY MOUTH IN THE MORNING. FOR BLOOD PRESSURE 90 tablet 3 07/16/19 24 025 Discontinued Active Problems Problem Noted Date Diagnosed Date Anxiety 03/03/2024 Moderate episode of recurrent major depressive d isorder 03/03/2024 Sickle cell trait 04/10/2023 Low back pain at multiple sites 04/09/2023 Assessment & Plan (08/15/2024 6:39 AM EST): Chronic low back, previously following with physical therapy Encouraged symptomatic management & reviewed return precautions TENS Unit purchased OTC has been helpful for symptoms Assessment & Plan (01/24/2024 9:27 PM EDT): Chronic low back, previously following with physical therapy Encouraged symptomatic management & reviewed return precautions TENS Unit purchased OTC has been helpful for symptoms Assessment & Plan (11/23/2023 2:14 PM EDT): Chronic low back, previously following with physical therapy Encouraged symptomatic management & reviewed return precautions Assessment & Plan (04/09/2023 7:32 AM EDT): ?? Following with physical therapy Mood disorder 08/08/2022 Assessment & Plan (08/15/2024 6:39 AM EST): Previously following with JAMAICA Paul for psych med management, although she is retiring shortly Per JAMAICA Paul: consistent with BP 2, with weeks-long periods of excess energy, decreased need for sleep, irritability, and other discrete periods of depression and sadness. Supported by poor response to SSRI, and recent ?hypomania after starting Wellbutrin. Mother has BPD as well Continues with depakote 250mg BID Following with therapist Assessment & Plan (11/23/2023 2:13 PM EDT): Previously following with JAMAICA Paul for psych med management, although she is retiring shortly Per JAMAICA Paul: consistent with BP 2, with weeks-long periods of excess energy, decreased need for sleep, irritability, and other discrete periods of depression and sadness. Supported by poor response to SSRI, and recent ?hypomania after starting Wellbutrin. Mother has BPD as well Continues with depakote 250mg BID Following with therapist Assessment & Plan (10/18/2023 4:45 PM EDT): Consistent with BP 2, with weeks-long periods of excess energy, decreased need for sleep, irritability; and other discrete periods of depression and sadness. Supported by poor response to SSRI, and recent ?hypomania after starting Wellbutrin. Mother has BPD as well. He continues doing very well. Recent labs of 09/04/2023 showed Depakote level a little low at 36.6, but patient admits sometimes missing doses. Mood is stable, so will not change dosing. Since this provider is retiring, patient will now be referred back to PCP for further medication management. [facility] with any issues or concerns. All his questions were answered. F/U with therapist as usual. He agrees with the plan. Assessment & Plan (08/16/2023 5:07 PM EST): Likely BP 2, with weeks-long periods of excess energy, decreased need for sleep, irritability; and other discrete periods of depression and sadness. Supported by poor response to SSRI, and recent ?hypomania after starting Wellbutrin. Mother has BPD as well. Still doing very well. Continue Depakote ER 250 mg 2 tabs twice daily. Labs now for routine monitoring. On 06/14/2023 provider informed pt that I would be retiring. At our next appt in 2 months will review plan for continuity of care. F/U with therapist as usual. He agrees with the plan. Assessment & Plan (06/14/2023 12:48 PM EST): Likely BP 2, with weeks-long periods of excess energy, decreased need for sleep, irritability; and other discrete periods of depression and sadness. Supported by poor response to SSRI, and recent ?hypomania after starting Wellbutrin. Mother has BPD as well. Still doing very well. Continue Depakote ER 250 mg 2 tabs twice daily. Today 06/14/2023 provider informed pt that I would be retiring. At our next appt in 2 months will review plan for continuity of care. F/U with therapist as usual. He agrees with the plan. Assessment & Plan (04/09/2023 7:30 AM EDT): ?? Following with JAMAICA Paul in [facility] Psychopharm clinic ?? Current med regimen: depakote ER 500mg BID ?? Established with therapist Assessment & Plan (03/13/2023 1:11 PM EDT): Likely BP 2, with weeks-long periods of excess energy, decreased need for sleep, irritability; and other discrete periods of depression and sadness. Supported by poor response to SSRI, and recent ?hypomania after starting Wellbutrin. Mother has BPD as well. Still doing very well. Continue Depakote ER 250 mg 2 tabs twice daily. F/U with therapist as usual and with me in 2-3 months. He agrees with the plan. Assessment & Plan (12/11/2022 1:29 PM EDT): Likely BP 2, with weeks-long periods of excess energy, decreased need for sleep, irritability; and other discrete periods of depression and sadness. Supported by poor response to SSRI, and recent ?hypomania after starting Wellbutrin. Mother has BPD as well. Still doing very well. Continue Depakote ER 250 mg 2 tabs in am and 1 tab in pm. We will F/U regarding lab results. F/U with therapist. F/U with me in 3 months. He agrees with the plan. Assessment & Plan (08/08/2022 2:29 PM EST): Likely BP 2, with weeks-long periods of excess energy, decreased need for sleep, irritability; and other discrete periods of depression and sadness. Supported by poor response to SSRI, and recent ?hypomania after starting Wellbutrin. Mother has BPD as well. Still doing very well. Continue Depakote ER 250 mg 2 tabs in am and 1 tab in pm. Due for labs. F/U with therapist. F/U with me in 2-3 months. He agrees with the plan. Routine health maintenance 08/07/2022 Overview (08/07/2022): -COVID-19: primary series complete, booster encouraged -Optometry: [facility] referral Mar 2022 -Dental: planning to re-establish with [facility] Dental Hyperlipidemia 07/21/2022 Assessment & Plan (09/06/2023 2:45 PM EDT): -LDL goal < 100 -Lipids Mar 2023: LDL 121, TC 175, HDL 32, TG 114 -Improvement in LDL from previous lipid panel, although still above goal -Encouraged to continue lifestyle modifications Assessment & Plan (04/10/2023 2:26 PM EDT): -Repeat lipid panel ordered -Encouraged to continue lifestyle modifications Acanthosis nigricans 07/21/2022 Severe sleep apnea 07/21/2022 Overview (04/09/2023): ?? Sleep study completed Jun 2022 ?? CPAP supplies through [facility] ?? Following with [facility] Medicine (last appt Jan 2023) Assessment & Plan (08/15/2024 6:39 AM EST): CPAP machine arrived Follow up with sleep medicine during upcoming appt regarding titration and mask options. Pt in agreement with plan Assessment & Plan (10/25/2022 9:35 AM EDT): ?? CPAP machine arrived ?? Follow up with sleep medicine during upcoming appt regarding titration and mask options. Pt in agreement with plan Assessment & Plan (08/07/2022 8:59 AM EST): CPAP pending Primary hypertension 12/06/2021 Assessment & Plan (08/15/2024 6:39 AM EST): Continues with lisinopril 20mg daily BP goal < 140/90 mmHg Well controlled Encourage low salt diet and routine physical movement Assessment & Plan (01/24/2024 9:23 PM EDT): Continues with lisinopril 20mg daily BP goal < 140/90 mmHg Well controlled Encourage low salt diet and routine physical movement Assessment & Plan (09/06/2023 2:50 PM EDT): Continues with lisinopril 20mg daily (did not take med today and believes that is why elevated in office) No chest pain, palpitations, SOB, difficulty breathing, blurry vision, N/V/D BP goal < 140/90 mmHg. Reviewed return parameters if not well controlled at home. Encourage low salt diet and routine physical movement Assessment & Plan (04/10/2023 2:25 PM EDT): ?? Continues with lisinopril 20mg daily ?? BP goal < 140/90 mmHg, well controlled ?? Encourage low salt diet and routine physical movement Prediabetes 03/10/2021 Overview (08/07/2022): -03/24/22: A1c of 5.8, lipids: TC 195, HDL 35, LDL 136, TG 120. -Lifestyle interventions encouraged Assessment & Plan (08/07/2022 8:53 AM EST): Lab Results Component Value Date HGBA1C 5.8 08/03/2022 Resolved Problems Problem Noted Date Diagnosed Date Resolved Date Generalized anxiety disorder 07/21/2022 08/08/2022 Agoraphobia 07/21/2022 08/08/2022 Overview (08/07/2022): -History of anxiety and agoraphobia -Continues working with JAMAICA Paul for med management and therapist every other week Encounters Date Type Department Care Team Description 08/15/2024 9:30 AM EST Office Visit [facility] MED & PEDS [address] [place] [address] Katelynn Merida FNP Encounter for routine history and physical examination of adult (Primary Dx); Dietary counseling; Exercise counseling; Low back pain at multiple sites; Mood disorder ([facility]/HCC); Primary hypertension; Severe sleep apnea; Prediabetes; Hyperlipidemia, unspecified hyperlipidemia type; Encounter for immunization 08/15/2024 Patient Outreach [facility] MED & PEDS [address] [place] [address] Katelynn Merida FNP Care Coordination (CHW outreach for SDOH food needs-referral completed /) 08/15/2024 Travel 08/12/2024 Telephone [facility] MED & PEDS [address] [place], [place] [phone] Ronda Connors [place] Chart Prep 07/31/2024 Patient Outreach [facility] MEDICINE [address] [place] [address] Katelynn Merida FNP Pre-visit Planning (Pre visit planning LVM ) 07/17/2024 Refill [facility] MEDICINE [address] [place], [place] [phone] Katelynn Merida FNP Primary hypertension 07/08/[address] [address] Katelynn Merida FNP from Last 3 Months Immunizations Name Administration Dates Next Due Hep B, adult 08/21/2023,05/22/2023,04/24/2023 Influenza injectable quadriv alent preservative free 04/09/2023,03/24/2022 Influenza, seasonal, injecta ble, preservative free 08/15/2024 Pfizer Covid-19 Vaccine 12+ 08/15/2024 Tdap 03/24/2022 Social History Tobacco Use Types Packs/Day Years Used Date Smoking Tobacco: Never Smokeless Tobacco: Never Tobacco Cessation:Counseling Given: Not Answered Alcohol Use Standard Drinks/Week Comments Yes 0 [...] Orientation Straight 04/17/2022 10 :36 AM EDT Last Filed Vital Signs Vital Sign Reading Time Taken Comments Blood Pressure 122/78 08/15/2024 9:32 AM EST Pulse 66 08/15/2024 9:32 AM EST Temperature 36.2 ??C (97.2 ??F) 08/15/2024 9:32 AM ES T Respiratory Rate 20 08/15/2024 9:32 AM EST Oxygen Saturation 98% 08/15/2024 9:32 AM EST Inhaled Oxygen Concentration - - Weight 143 kg (316 lb) 08/15/2024 9:32 AM EST Height 181.9 cm (5' 11.63 ) 08/15/2024 9:[address] Body Mass Index 43.3 08/15/2024 9:32 AM EST Plan of Treatment Health Maintenance Due Date Last Done Comments Dental Oral Exam 1993 Dental Prophylaxis 1993 Dental X-Ray: Bitewings 1993 Alcohol/Substance Use Screening 2005 Family Planning (PISQ) 2008 Dental X-Ray: Full Mouth 01/05/2024 01/03/2021 Diabetes: Hemoglobin A1C 04/09/2024 023, 08/03/2022, 03/24/2022, Additional history exists Depression Screening 03/03/2025 03/03/2024, 03/03/20 24 SDOH Screening 08/15/2025 08/15/2024 Tobacco Screening 08/15/2025 08/15/2024 Lipid Panel 04/09/2028 04/09/2023, 1012/2021, 10/13/2021, Additional history exists DTaP/Tdap/Td Vaccines (2 - Td or Tdap) 03/24/2032 03/24/2022 Zoster Vaccines (1 of 2) 2043 RSV Patients and Patients Aged 60 years or older (1 - 1-dose 75+ series) 2068 HIV Screening Completed 04/09/2023, 02/09/2021 Hepatitis C Screening Completed 04/09/2023 Hepatitis B Vaccines Completed 08/21/2023, 05/22/2023, 04/24/2023 COVID-19 Vaccine Completed 08/15/2024, , 03/10/2021 Influenza Vaccine Completed 08/15/2024, , 03/24/2022 HIB Vaccines Aged Out No longer eligi ble based on patient's age to complete this topic HPV Vaccines Aged Out No longer eligi ble based on patient's age to complete this topic Hepatitis A Vaccines Aged Out No long er eligible based on patient's age to complete this topic IPV Vaccines Aged Out No longer eligi ble based on patient's age to complete this topic Meningococcal Vaccine Aged Out No anna eleanor eligible based on patient's age to complete this topic Pneumococcal Vaccine: Pediatrics (0 to 5 Years) and At-Risk Patients (6 to 49) Years) Aged Out No longer eligible based on patient's age to complete this topic RSV under 20 months Aged Out No longe r eligible based on patient's age to complete this topic Rotavirus Vaccines Aged Out No longer eligible based on patient's age to complete this topic Procedures Procedure Name Priority Date/Time Associated Diagnosis Comments HEPATITIS C AB W/REFL TO HCV RNA, QN, PCR Routine 04/09/2023 11:37 AM EDT HIV ANTIBODY/ANTIGEN ([place] DPH) Routine 04/09/2023 11:37 AM EDT HEMOGLOBIN A1C Routine 04/09/2023 11:37 AM EDT Encounter for routine history and physical examination of adult LIPID PANEL, STANDARD Routine 04/09/2023 11:37 AM EDT Encounter for routine history and physical examination of adult PANORAMIC RADIOGRAPHIC IMAGE Routine 01/03/2021 12:00 AM EDT from Last 3 Months or Most Recently Relevant to Health Maintenance Results * HIV Ab/Ag ([place] D[facility]) (04/09/2023 11:37 AM EDT) Pathologist [facility] HIV AB/AG Nonreactive Nonreactive [facility] Comment:HIV-1 p24 Ag and/or HIV-1/HIV-2 Ab not detected.A test result that is nonreactive does not exclude thepossibility of exposure to or infection with HIV-1 and/orHIV-2. Nonreactive results in this assay for individualswith prior exposure to HIV-1 and/or HIV-2 may be due toantigen and antibody levels that are below the limit ofdetection of this assay.The [employer] HIV Ag/Ab Combo assay result andsupplemental assay results should be interpreted inconjunction with the patient's clinical presentation,history and other laboratory results. If the results areinconsistent with clinical evidence, additional testing issuggested to confirm the result. 04/09/2023 11:3 7 AM EDT 04/09/2023 2:48 PM EDT us Katelynn Merida PATTERN DESIGNER LAB BLOOD ORDERABLES Final Res ult [facility] [address] [place] [phone] * Hepatitis C Antibody with Reflex to HCV, RNA, Quantitative, Real-Time PCR (04/09/2023 11:37 AM EDT) Pathologist [facility] Hepatitis C Antibody Nonreactive Nonreactive [facility] Comment:Antibodies to HCV no t detected; does not exclude early acuteHCV infection. 04/09/2023 11:3 7 AM EDT 04/09/2023 2:48 PM EDT Katelynn Merida [facility] LAB BLOOD ORDERABLES Final Res ult Performing Organization Address [facility] Co de Phone Number [facility] [address] [place] [address] [phone] * Hemoglobin A1c (04/09/2023 11:37 AM EDT) Hemoglobin A1c 5.3 <6.0 % [facility] Comment:Hemoglobin A1C Refer ence Range Adults: 4.8 - 6.0 % Non diabetic: < 6.0 % Goal: < 7.0 %Additional Action Suggested: > 8.0 %Note: Hemoglobin A1c results are invalid for patients with abnormal amounts of HbF. Blood transfusions may impact the HbA1c concentration in the patient sample. Estimated Average Glucose 105 mg/dL [facility] Comment:eAG = Estimated ave rage glucose which is %A1C expressed asaverage glucose, using the formula of the R1W-IxgoprbEmeupch Glucose study (ADAG), Diabetes Care, Vol.31,#8,Jan. 2007 Blood Venous blood specimen / Unknown 04/09/2023 11:37 AM EDT 04/09/2023 2:48 PM EDT Katelynn Merida [facility] LAB BLOOD ORDERABLES Final Res ult Performing Organization Address [facility] Co de Phone Number [facility] [address] [place] [address] [phone] * (ABNORMAL) Lipid Panel, Standard (04/09/2023 11:37 AM EDT) Triglycerides 114 <150 mg/dL [facility] Comment:Desirable Triglyceri de: less than 150 mg/dLBorderline High Triglyceride 150-199 mg/dLHigh Triglyceride: 200-499 mg/dLVery High Triglyceride: greater than or equal to 5OO mg/dL Cholesterol 175 <200 mg/dL [facility] Comment:Desirable Cholestero l: less than 200 mg/dLBorderline High Cholesterol: 200-239 mg/dLHigh Cholesterol: greater than 239 mg/dL LDL Cholesterol Calculated 121(H) <100 mg/dL [facility] Comment:Desirable LDL: less than 100 mg/dLNear Optimal/Above Optimal LDL: 110- 129 mg/dLBorderline High LDL: 130-159 mg/dLHigh LDL: 160-189 mg/dLVery High LDL: greater than or equal to 190 mg/dL HDL Cholesterol 32(L) >40 mg/dL [facility] Comment:Desirable HDL: great er than 40 mg/dL Note: This HDL assay may give artificially low results in patients with liver disease. Blood Venous blood specimen / Unknown 04/09/2023 11:37 AM EDT 04/09/2023 2:48 PM EDT Katelynn Merida PATTERN DESIGNER LAB BLOOD ORDERABLES Final Res ult [facility] [address] [place] [phone] [phone] from Last 3 Months or Most Recently Relevant to Health Maintenance Insurance [employer] [employer] [place] AD[place] Care Teams Improvement Intern Relationship Specialty Start Date End Date Katelynn Merida FNP [address] [place] [address] PCP - General Family Medicine 02/12/22 Darvin Paul FNP [address] [place] [address] Nurse Practitioner Family Medicine 05/22/23
--- OUTSIDE RECORDS SUMMARY | 2024-08-15 12:32 | XMS_ITS | Encounter Summary ---
Author Organization [employer] Address [address] [facility] [address] [place] [address] Care Team Providers Care Residential Builder Name Role Phone JamesKatelynn llamas THERMAL CUTTING TRACER MACHINE OPERATOR Primary Care Provider [phone] Darvin Paul THERMAL CUTTING TRACER MACHINE OPERATOR Unavailable Unavailable Encounter Details Date Type Department Care Team (Latest Contact Info) Description 08/15/2024 Travel Social History Tobacco Use Types Packs/Day Years [...] AM EDT documented as of this encounter Plan of Treatment Not on file documented as of this encounter Visit Diagnoses Not on filedocumented in this encounter Additional Health Concerns Assessment Noted Time PHQ-9 Depression Total Score: 7 03/03/20 24 1:35 PM EDT documented as of this encounter Care Teams Residential Builder Relationship Specialty Start Date End Date Katelynn Merida FNP [address] [place] [address] PCP - General Family Medicine 02/12/22 Darvin Paul FNP [address] [place] [address] Nurse Practitioner Family Medicine 05/22/23 documented as of this encounter
--- OUTSIDE RECORDS SUMMARY | 2024-08-15 12:32 | XMS_ITS | Encounter Summary ---
Author Organization [employer] Address [address] [place] [address] 7 [place] [address] Care Team Providers Care Solid Waste Landfill Technician Name Role Phone Katelynn Merida Primary Care Provider [phone] Darvin Paul Unavailable Unavailable Reason for Visit * Reason Comments Pre-visit Planning Pre visit planning L VM Encounter Details Date Type Department Care Team ([facility] st Contact Info) Description 07/31/2024 Patient Outreach [facility] MED[facility] [address] [place] [address] Katelynn Merida FNP [address] [place] [address] Pre-visit Planning (Pre visit planning LVM ) Social History Tobacco Use Types Packs/Day Years [...] housing situation today? I have chriss leary 04/09/[address] you li ve. Do you have problems with any of the following? None of the above 04/09/2023 Food Insecurity Answer Date Recorded Within the past 12 months, y ou worried that your food would run out before you got money to buy more: Never True 04/09/2023 Within the past 12 months,th e food you bought just didn't last and you didn't have enough money to get more: Never True Transportation Answer Date Recorded In the past 12 months, has l ack of transportation kept you from medical appts, meetings, work or from getting things needed for daily living? No 04/09/2023 Utilities Answer Date Recorded In the past 12 months, has t he electric, gas, oil or water company threatened to shut off services in your home? No 04/09/2023 Depression Answer Date Recorded Patient Health Questionnaire-2 Score 3 03/03/2024 Sex and Gender Information Value Date Recorded Sex Assigned at Male 04/17/2022 10:36 AM EDT Legal Sex Male 10:36 AM EDT Gender Identity Male 04/17/2022 10:36 AM EDT Sexual Orientation Straight 04/17/2022 10 :36 AM EDT documented as of this encounter Progress Notes * Hunter Key - 07/31/2024 1:28 PM EST CC Hunter Bueno placed outbound call to patient to complete pre-visit planning. No answer at this time.Patient name and were not confirmed. CC left voicemail requesting return call. Direct contact information provided. documented in this encounter Plan of Treatment Not on file documented as of this encounter Visit Diagnoses Not on filedocumented in this encounter Additional Health Concerns Assessment Noted Time PHQ-9 Depression Total Score: 7 03/03/20 24 1:35 PM EDT documented as of this encounter Care Teams Solid Waste Landfill Technician Relationship Specialty Start Date End Date Katelynn Merida FNP [address] [place] [address] PCP - General Family Medicine 02/12/22 Darvin Paul FNP [address] [place] [address] Nurse Practitioner Family Medicine 05/22/23 documented as of this encounter
--- OUTSIDE RECORDS SUMMARY | 2024-08-15 12:32 | XMS_ITS | Encounter Summary ---
Author Organization [employer] Address [address] [place] [address] [address] [place] [address] Care Team Providers Care Gsa Coordinator Name Role Phone Katelynn Merida Primary Care Provider [phone] Darvin Paul Unavailable Unavailable Encounter Details Date Type Department Care Team (Latest Contact Info) Description 08/15/2024 9:30 AM EST Office Visit [facility] [address] [place], [place] [id number] Katelynn Merida FNP [address] [place] [address] Encounter for routine history and physical examination of adult (Primary Dx); Dietary counseling; Exercise counseling; Low back pain at multiple sites; Mood disorder (CMS/HCC); Primary hypertension; Severe sleep apnea; Prediabetes; Hyperlipidemia, unspecified hyperlipidemia type; Encounter for immunization Social History Tobacco Use Types Packs/Day Years [...] AM EDT documented as of this encounter Last Filed Vital Signs Vital Sign Reading [...] Mass Index 43.3 08/15/2024 9:32 AM EST documented in this encounter Patient Instructions * Patient Instructions* KENTON Wagner - 08/15/2024 9:30 AM EST Should receive a call by end august to schedule with psych prescriber: [phone] Referral to Derm team for skin tag Xray of Lumbar Spine Lab work Hydrocortisone sent to pharmacy for eczema documented in this encounter Miscellaneous Notes * Assessment & Plan Note - KENTON Wagner - 08/15/2024 6:39 AM ESTAssociated Problem(s): Severe sleep apnea CPAP machine arrived Follow up with sleep medicine during upcoming appt regarding titration and mask options. Pt in agreement with plan * Assessment & Plan Note - KENTON Wagner - 08/15/2024 6:39 AM ESTAssociated Problem(s): Primary hypertension Continues with lisinopril 20mg daily BP goal < 140/90 mmHg Well controlled Encourage low salt diet and routine physical movement * Assessment & Plan Note - KENTON Wagner - 08/15/2024 6:39 AM ESTAssociated Problem(s): Mood disorder (CMS/HCC) Previously following with [place] Paul for psych [...] with depakote 250mg BID Following with therapist * Assessment & Plan Note - KENTON Wagner - 08/15/2024 6:39 AM ESTAssociated Problem(s): Low back pain at multiple sites Chronic low back, previously following with physical therapy Encouraged symptomatic management & reviewed return precautions TENS Unit purchased OTC has been helpful for symptoms documented in this encounter Plan of Treatment Scheduled Orders Name Type Priority Associated Diagnoses Orde r Schedule Lipid Panel, Standard Lab Routine Encounter for routine history and physical examination of adult Expected: 08/15/2024 (Approximate), Expires: 08/15/2025 Hemoglobin A1c Lab Routine Encounter for routine history and physical examination of adult Expected: 08/15/2024 (Approximate), Expires: 08/15/2025 TSH with Reflex to Free T4 Lab Routine Encounter for routine history and physical examination of adult Expected: 08/15/2024 (Approximate), Expires: 08/15/2025 Comprehensive Metabolic Panel Lab Routine Encounter for routine history and physical examination of adult Expected: 08/15/2024 (Approximate), Expires: 08/15/2025 CBC auto differential Lab Routine Encounter for routine history and physical examination of adult Expected: 08/15/2024, Expires: 08/15/2025 Chlamydia/N. Gonorrhoeae RNA, TMA, Urogenitial Microbiology Routine Encounter for routine history and physical examination of adult Expected: 08/15/2024, Expires: 08/15/2025 Hepatitis C Viral RNA, Quantitative, Real-Time PCR Lab Routine Encounter for routine history and physical examination of adult Expected: 08/15/2024 (Approximate), Expires: 08/15/2025 RPR (Monitor) with Reflex to??Titer Lab Routine Encounter for routine history and physical examination of adult Expected: 08/15/2024 (Approximate), Expires: 08/15/2025 HIV-1/2 Antigen and Antibodies, Fourth Generation, with Reflexes Lab Routine Encounter for routine history and physical examination of adult Expected: 08/15/2024 (Approximate), Expires: 08/15/2025 XR Lumbar Spine 2-3 Views Imaging Routine Low back pain at multiple sites Expected: 08/15/2024, Expires: 08/15/2025 documented as of this encounter Visit Diagnoses Diagnosis Encounter for routine history and physical examination of adult- Primary Dietary counseling Dietary surveillance and counseling Exercise counseling Low back pain at multiple sites Mood disorder (CMS/HCC) Unspecified episodic mood disorder Primary hypertension Unspecified essential hypertension Severe sleep apnea Prediabetes Other abnormal glucose Hyperlipidemia, unspecified hyperlipidemia type Encounter for immunization documented in this encounter Additional Health Concerns Assessment Noted Time PHQ-9 Depression Total Score: 7 03/03/20 24 1:35 PM EDT documented as of this encounter Care Teams Gsa Coordinator Relationship Specialty Start Date End Date Katelynn Merida FNP [address] [place] [address] PCP - General Family Medicine 02/12/22 Darvin Paul FNP [address] [place] [address] Nurse Practitioner Family Medicine 05/22/23 documented as of this encounter
--- OUTSIDE RECORDS SUMMARY | 2024-08-15 12:32 | XMS_ITS | Encounter Summary ---
Author Organization [employer] Address [address] [place] [address] 7 [place] [address] Care Team Providers Care Building Specialist Name Role Phone Jamesmuriel Katelynn KENTON Primary Care Provider [phone] Darvin Paul PARKING CONTROL OFFICER Unavailable Unavailable Reason for Visit * Reason Onset Date Comments Chart Prep 08/12/2024 Encounter Details Date Type Department Care Team ([facility] Contact Info) Description 08/12/2024 Telephone [facility] [address] [place] [address] Ronda Connors [place] Chart Prep Social History Tobacco Use Types Packs/Day Years [...] AM EDT documented as of this encounter Miscellaneous Notes * Telephone Encounter - Ronda Luz MA - 08/12/2024 4:57 PM EST Chart Prep Labs: done Images: done Vaccines due: yes Referrals: complete Screenings: n/a Overdue care gaps: Sbirt, SDOH, PHQ-9, PISQ documented in this encounter Plan of Treatment Not on file documented as of this encounter Visit Diagnoses Not on filedocumented in this encounter Additional Health Concerns Assessment Noted Time PHQ-9 Depression Total Score: 7 03/03/20 24 1:35 PM EDT documented as of this encounter Care Teams Building Specialist Relationship Specialty Start Date End Date Katelynn Merida FNP [address] [place] [address] PCP - General Family Medicine 02/12/22 Darvin Paul FNP [address] [place] [address] Nurse Practitioner Family Medicine 05/22/23 documented as of this encounter
--- OUTSIDE RECORDS SUMMARY | 2024-08-15 12:32 | XMS_ITS | Encounter Summary ---
Author Organization [employer] Address [address] [place] [address] [address] [place] [address] Care Team Providers Care Collection Systems Modeler Name Role Phone Katelynn Merida Primary Care Provider [phone] Darvin Paul Unavailable Unavailable Reason for Visit * Reason Comments Med Refill Encounter Details Date Type Department Care Team ([facility] st Contact Info) Description 07/17/2024 Refill [facility] [address] [place] [address] Katelynn Merida FNP [address] [place] [address] Primary hypertension Social History Tobacco Use Types Packs/Day Years [...] as of this encounter Visit Diagnoses Diagnosis Primary hypertension Unspecified essential hypertension documented in this encounter Additional Health Concerns Assessment Noted Time PHQ-9 Depression Total Score: 7 03/03/20 24 1:35 PM EDT documented as of this encounter Care Teams Collection Systems Modeler Relationship Specialty Start Date End Date Katelynn Merida FNP [address] [place] [address] PCP - General Family Medicine 02/12/22 Darvin Paul FNP [address] [place] [address] Nurse Practitioner Family Medicine 05/22/23 documented as of this encounter
--- OUTSIDE RECORDS SUMMARY | 2024-08-15 12:33 | XMS_ITS | Encounter Summary ---
Author Organization [employer] [facility] Address [address] [place] [address] [address] [place] [address] Care Team Providers Care Expediter Clerk Name Role Phone Katelynn Merida Primary Care Provider [phone] Darvin Paul Unavailable Unavailable Encounter Details Date Type Department Care Team (Late st Contact Info) Description 06/26/2022 Orders Only [facility] MEDICINE [address] [place], [place] [id number] Devora Young LPN Social History Tobacco Use Types Packs/Day Years Used Date Smoking Tobacco: Never Assessed Sex and Gender Information Value Date Recorded Sex Assigned at Male 04/17/2022 10:36 AM EDT Legal Sex Male 10:36 AM EDT Gender Identity Male 04/17/2022 10:36 AM EDT Sexual Orientation Straight 04/17/2022 10 :36 AM EDT documented as of this encounter Plan of Treatment Not on file documented as of this encounter Visit Diagnoses Not on filedocumented in this encounter Care Teams Expediter Clerk Relationship Specialty Start Date End Date Katelynn Merida FNP [address] [place] [address] PCP - General Family Medicine 02/12/22 Darvin Paul FNP [address] [place] [address] Nurse Practitioner Family Medicine 05/22/23 documented as of this encounter
[2024-08-15 14:42] LABS: MANUAL DIFF FLAG NO
[2024-08-15 14:49] LABS: Basophils Percent Auto 0.5 % (0-2); Eosinophils Absolute Auto 0.1 X10*3/uL (0.0-0.4); Eosinophils Percent Auto 1.6 % (0-4); Hematocrit 41.4 % (42.0-52.0); Hemoglobin 13.7 g/dl (14.0-18.0); Imm Gran Abs Auto 0.03 X10*3/uL (0.00-0.03); Imm Gran Pct Auto 0.4 % (0.0-0.4); Lymphocytes Absolute Auto 2.5 X10*3/uL (1.2-4.9); Mean Corpuscular HGB Conc 33.1 g/dl (31.0-36.0); Mean Corpuscular Hemoglobin 27.2 pg (27.0-33.0); Mean Corpuscular Volume 82.1 fL (80.0-98.0); Mean Platelet Volume 10.3 fL (9.4-12.4); Monocytes Absolute Auto 0.5 X10*3/uL (0.1-1.2); Monocytes Percent Auto 5.9 % (2-11); Neutrophils Absolute Auto 5.1 x10*3/uL (2.0-8.3); Neutrophils Percent Auto 61.6 % (45-73); Platelet Count 357 X10*3/uL (160-400); Red Blood Count 5.04 X10*6/uL (4.60-5.80); Red Cell Distribution Width 13.2 % (11.0-16.0); White Blood Count 8.3 X10*3/uL (4.8-10.8)
[2024-08-15 14:56] LABS: Estimated Average Glucose 117 mg/dL; Hemoglobin A1C 137.8982 umol/L; Hemoglobin A1c % 5.7 % (<6.0); Total Hemoglobin (HGBA1C) 3586.9452 umol/L
[2024-08-15 16:30] LABS: CT PCR NOT DETECTED (Not Detect.); NG PCR NOT DETECTED (Not Detect.)
[2024-08-15 17:38] LABS: Alanine Aminotransferase 45 U/L (0-40); Anion Gap 12 (12-20); Aspartate Amino Transferase 31 U/L (5-37); Bilirubin Total 0.4 mg/dL (0.0-1.0); Blood Urea Nitrogen 12 mg/dL (9-16); Calcium 9.9 mg/dL (8.4-10.2); Carbon Dioxide 26 mmol/L (22-29); Chloride 107 mmol/L (96-108); Cholesterol 179 mg/dL (<200); Estimated Glomerular Filt Rate > 60; Glucose Random 80 mg/dL (60-115); HDL Cholesterol 34 mg/dL (>40); LDL Cholesterol Calculated 126 mg/dL (<100); Potassium 4.1 mmol/L (3.3-5.1); Sodium 141 mmol/L (135-145); Total Protein 7.7 g/dL (6.5-8.0); Triglycerides 98 mg/dL (<150)
[2024-08-15 17:53] LABS: TSH reflex Free T4 1.54 uIU/mL (0.32-4.0)
[2024-08-15 18:38] LABS: Alkaline Phosphatase 91 U/L (39-117)
[2024-08-17 15:39] LABS: RPR Rapid Plasma Reagin NON-REACTIVE (NON-REACTIVE)
[2024-08-18 09:23] LABS: HIV AB/AG Nonreactive (Nonreactive); HIV Num 1 0.06 S/CO (0.00-0.99)
[2024-08-18 12:07] LABS: HCV Log PCR <1.18 NOT DETECTED Log IU/mL (NOT DETECTED); HepC Viral Load <15 NOT DETECTED IU/mL (NOT DETECTED)
== END 2024-08-15 10:55 | disposition home or self-care (01) ==
LOC: HO.CHCLDS 10:54
PROVIDERS: Visit Provider Registered Nurse
DX: Z00.00 Encounter for general adult medical examination without abnormal findings (principal)
CPT/HCPCS: 36415; 80053; 80061; 83036; 84443; 85025; 86592; 87389; 87491; 87522; 87591

== ENCOUNTER 2024-08-22 11:52 | Outpatient (REF) | payer MEDICAID, SELFPAY ==
--- NOTE | ~2024-08-22 | XR_ITS ---
EXAMINATION: XR LUMBAR SPINE 2-3 VIEWS HISTORY: Chronic low back pain following PT COMPARISON: Comparison is made with the prior examination dated 08/08/2019. FINDINGS: AP, lateral, and coned down views of the lumbar spine are submitted. Osseous mineralization is normal. Five nonrib-bearing lumbar vertebral bodies are identified, maintaining normal height and alignment without evidence of fracture or spondylolisthesis. The intervertebral disc spaces are preserved. The posterior elements are intact. The visualized paraspinal soft tissues are unremarkable. XR/XR lumbar spine 2-3V IMPRESSION: Unremarkable examination of the lumbar spine. Electronically signed by: Fidel Cabrera MD 08/22/2024 01:55 PM [facility]
--- OUTSIDE RECORDS SUMMARY | 2024-08-22 13:44 | XMS_ITS | Clinical Summary ---
Author Organization [employer] Address [address] [place] [address] [address] [place] [address] Care Team Providers Care Tieing Machine Operator Name Role Phone Katelynn Merida Primary Care Provider [phone] Darvin PualP Unavailable Unavailable Allergies Active Allergy Reactions Criticality [...] hypertension . 1 kit 09/06/19 24 Active lisinopril 20 MG tabletIndicatio ns:Primary hypertension TAKE 1 TABLET (20 MG) BY MOUTH IN THE MORNING. FOR BLOOD PRESSURE 90 tablet 3 07/18/19 25 Active hydrocortisone 2.5 % creamIndication s:Dermatitis Apply pea sized amount to skin bid for 1 week 15 g 08/15/19 25 Active buPROPion (Wellbutrin) 75 MG tabletIndicatio ns:Moderate episode of recurrent major depressive disorder (CMS/HCC) Take 1 tablet (75 mg) by mouth 2 times daily. 60 tablet 1 08/22/19 25 025 Active divalproex (Depakote ER) 250 MG 24 hr tabletIndicatio ns:Mood disorder (CMS/HCC) Take 2 tablets (500 mg) by mouth 2 times daily. Do not crush, chew, or split. 120 tablet 1 08/22/19 25 025 Active divalproex (Depakote ER) 250 MG 24 hr tabletIndicatio ns:Mood disorder (CMS/HCC) Take 3 tablets orally every day. Do not crush, chew, or split. 270 tablet 1 08/08/19 23 Discontinued(Re order (will not trigger notification to Pharmacy)) divalproex (Depakote ER) 250 MG 24 hr tabletIndicatio ns:Mood disorder (CMS/HCC) Take 2 tablets (500 mg) by mouth 2 times daily. Do not crush, chew, or split. 360 tablet 3 10/18/19 24 025 Discontinued(Re order (will not trigger notification to Pharmacy)) Active Problems Problem Noted Date Diagnosed Date Anxiety 03/03/2024 Moderate episode of recurrent major depressive d isorder 03/03/2024 Sickle cell trait 04/10/2023 Low back pain at multiple sites 04/09/2023 Assessment & Plan (08/16/2024 6:27 PM EST): Describes worsening of symptoms over the past few months limiting ability to function in daily life. No red flag symptoms in history or on exam. Chronic low back, previously following with physical therapy with moderate symptom relief Lumbar x-ray for further eval Encouraged to continue with symptomatic management Assessment & Plan (01/24/2024 9:27 PM EDT): [...] therapy Mood disorder 08/08/2022 Assessment & Plan (08/16/2024 6:26 PM EST): Previously following with JAMAICA Paul for psych med management Per JAMAICA Paul: consistent with BP 2, with weeks-long periods of excess energy, decreased need for sleep, irritability, and other discrete periods of depression and sadness. Supported by poor response to SSRI, and recent ?hypomania after starting Wellbutrin. Mother has BPD as well Continues with depakote 250mg BID Following with therapist through [facility] Reports ADHD eval completed June 2024 through [facility], encouraged to request reports. Please bring to appointment with LIFE SCIENCE TECHNICAL OFFICER Tavon?? Man Referral to establish with psych prescriber through [facility] Assessment & Plan (11/23/2023 2:13 PM EDT): [...] further medication management. He should call the [facility] with any issues or concerns. All [...] EDT): ?? Following with JAMAICA Paul in [facility] Psychopharm clinic ?? Current med regimen: [...] the plan. Routine health maintenance 08/07/2022 Overview (08/16/2024): -PE: 08/15/2024 Hyperlipidemia 07/21/2022 Overview (08/16/2024): Lab Results Component Value Date CHOL 179 08/15/2024 CHOL 175 04/09/2023 TRIG 98 08/15/2024 TRIG 114 04/09/2023 HDL 34 (L) 08/15/2024 HDL 32 (L) 04/09/2023 LDLCHOLCAL 126 (H) 08/15/2024 LDLCHOLCAL 121 (H) 04/09/2023 -continue lifestyle modification Assessment & Plan (09/06/2023 2:45 PM EDT): -LDL goal < 100 -Lipids Mar 2023: LDL 121, TC 175, HDL 32, TG 114 -Improvement in LDL from previous lipid panel, although still above goal -Encouraged to continue lifestyle modifications Assessment & Plan (04/10/2023 2:26 PM EDT): -Repeat lipid panel ordered -Encouraged to continue lifestyle modifications Acanthosis nigricans 07/21/2022 Severe sleep apnea 07/21/2022 Overview (08/16/2024): Sleep study completed Jun 2022 CPAP supplies through [facility] with [facility] Assessment & Plan (10/25/2022 9:35 AM EDT): [...] and routine physical movement Prediabetes 03/10/2021 Overview (08/16/2024): Lab Results Component Value Date HGBA1C 5.7 08/15/2024 Assessment & Plan (08/16/2024 6:24 PM EST): Encouraged to continue lifestyle interventions. Assessment & Plan (08/07/2022 8:53 AM EST): Lab Results Component Value Date HGBA1C 5.8 08/03/2022 Resolved Problems Problem Noted Date Diagnosed Date Resolved Date Generalized anxiety disorder 07/21/2022 08/08/2022 Agoraphobia 07/21/2022 08/08/2022 Overview (08/07/2022): -History of anxiety and agoraphobia -Continues working with JAMAICA Paul for med management and therapist every other week Encounters * This document contains information received from the source organization and may not represent a complete record from that organization. Date Type Department Care Team Description 08/18/2024 Telephone [facility] [address] [place] [phone] Radha Sevilla RN 08/15/2024 9:30 AM EST Office Visit [facility] [address] [place] [address] Katelynn Merida FNP Encounter for routine history and physical examination of adult (Primary Dx); Dietary counseling; Exercise counseling; Low back pain at multiple sites; Mood disorder ([facility]/HCC); Primary hypertension; Severe sleep apnea; Prediabetes; Hyperlipidemia, unspecified hyperlipidemia type; Encounter for immunization; Dermatitis; Routine health maintenance; Skin tag 08/15/2024 Patient Outreach [facility] [address] [place] [address] Katelynn Merida FNP Care Coordination (CHW outreach for SDOH food needs-referral completed /) 08/15/2024 Travel 08/12/2024 Telephone [facility] [address] [place] [address] Ronda Connors MA Chart Prep 07/31/2024 Patient Outreach [facility] [address] [place] [phone] Katelynn Merida FNP Pre-visit Planning (Pre visit planning LVM ) 07/17/2024 Refill [facility] [address] [place] [address] Katelynn Merida FNP Primary hypertension 07/08/[address] [address] Katelynn Merida FNP from Last 3 Months [...] 08/15/2024 9:32 AM EST Plan of Treatment Upcoming Encounters Date Type Department Care Team (Late st Contact Info) Description 10/21/2024 10:15 AM EDT Office Visit [facility] [address] [place] [address] Richmond Hunter MD [address] [place] [address] Health Maintenance Due Date Last Done Comments Dental Oral Exam 1993 Dental Prophylaxis 1993 Dental X-Ray: Bitewings 1993 Alcohol/Substance Use Screening 2005 Dental X-Ray: Full Mouth 01/05/2024 01/03/2021 Depression Screening 03/03/2025 03/03/2024, 03/03/20 24 Diabetes: Hemoglobin A1C 08/15/2025 025, 04/09/2023, 08/03/2022, Additional history exists SDOH Screening 08/15/2025 08/15/2024 Family Planning (PISQ) 08/16/2025 08/16/2024 Tobacco Screening 08/21/2025 08/21/2024 Lipid Panel 08/15/2029 08/15/2024, 03/19, 03/24/2022, Additional history exists DTaP/Tdap/Td Vaccines (2 - Td or Tdap) 03/24/2032 03/24/2022 Zoster Vaccines (1 of 2) 2043 RSV Patients and Patients Aged 60 years or older (1 - 1-dose 75+ series) 2068 Hepatitis B Vaccines Completed 08/21/2023, 05/22/2023, 04/24/2023 COVID-19 Vaccine Completed 08/15/2024, , 03/10/2021 HIV Screening Completed 08/15/2024, 03/19, 02/09/2021 Hepatitis C Screening Completed 08/15/2024, 023 Influenza Vaccine Completed 08/15/2024, , 03/24/2022 HIB [...] Procedure Name Priority Date/Time Associated Diagnosis Comments CHLAMYDIA/N. GONORRHOEAE RNA, TMA, UROGENITAL Routine 08/15/2024 11:00 AM EST Encounter for routine history and physical examination of adult HIV 1/2 ANTIGEN/ANTIBODY, FOURTH GENERATION W/RFL Routine 08/15/2024 10:56 AM EST Encounter for routine history and physical examination of adult RPR (MONITOR) W/REFL TITER Routine 08/15/2024 10:56 AM EST Encounter for routine history and physical examination of adult HEPATITIS C VIRAL RNA, QUANTITATIVE, REAL-TIME PCR Routine 08/15/2024 10:56 AM EST Encounter for routine history and physical examination of adult CBC WITH AUTO DIFFERENTIAL Routine 08/15/2024 10:56 AM EST Encounter for routine history and physical examination of adult COMPREHENSIVE METABOLIC PANEL Routine 08/15/2024 10:56 AM EST Encounter for routine history and physical examination of adult TSH W/REFLEX TO FT4 Routine 08/15/2024 1 0:56 AM EST Encounter for routine history and physical examination of adult HEMOGLOBIN A1C Routine 08/15/2024 10:56 AM EST Encounter for routine history and physical examination of adult LIPID PANEL, STANDARD Routine 08/15/2024 10:56 AM EST Encounter for routine history and physical examination of adult PANORAMIC RADIOGRAPHIC IMAGE Routine 01/03/2021 12:00 AM EDT from Last 3 Months or Most Recently Relevant to Health Maintenance Results * Chlamydia/N. Gonorrhoeae RNA, TMA, Urogenitial (08/15/2024 11:00 AM EST) Pathologist [facility] CT PCR NOT DETECTED Not Detect. [facility] Comment:A not detected test result does not exclude the possibilityof infection because test results can be affected byimproper specimen collection, concurrent antibiotic therapy,or the number of organisms in the specimen which may bebelow the sensitivity of the test. As with many diagnostictests, results from the Xpert CT/NG assay should beinterpreted in conjunction with other laboratory andclinical data available to the clinician.Xpert CT/NG performance has not been evaluated in patientsless than 14 years of age. The assay should not be used forthe evaluationof suspected sexual abuse or for other medico-legalindications. Additional testing is recommended in anycircumstance when false positive or false negative resultscould lead to adverse medical, social or psychologicalconsequences. NG PCR NOT DETECTED Not Detect. [facility] Comment:A not detected test result does not exclude the possibilityof infection because test results can be affected byimproper specimen collection, concurrent antibiotic therapy,or the number of organisms in the specimen which may bebelow the sensitivity of the test. As with many diagnostictests, results from the Xpert CT/NG assay should beinterpreted in conjunction with other laboratory andclinical data available to the clinician.Xpert CT/NG performance has not been evaluated in patientsless than 14 years of age. The assay should not be used forthe evaluationof suspected sexual abuse or for other medico-legalindications. Additional testing is recommended in anycircumstance when false positive or false negative resultscould lead to adverse medical, social or psychologicalconsequences. Urine (Urine, Random) 08/15/2024 11:00 AM EST 08/15/2024 2:40 PM EST Narrative [facility] - 08/15/2024 4:30 PM EST Urine [facility] LAB MICROBIOLOGY - GENERAL ORD ERABLES Final Result Performing Organization Address [facility]/ZIP Co de Phone Number [facility] [address] [place] [phone] * TSH with Reflex to Free T4 (08/15/2024 10:56 AM EST) TSH reflex Free T4 1.54 0.32 - 4.0 uIU/mL [facility] Blood 08/15/2024 10:5 6 AM EST 08/15/2024 2:33 PM EST [facility] LAB BLOOD ORDERABLES Final Res ult Performing Organization Address [facility]/ZIP Co de Phone Number [facility] [address] [place] [phone] * Hepatitis C Viral RNA, Quantitative, Real-Time PCR (08/15/2024 10:56 AM EST) Hepatitis C Viral Load <15 NOT DETECTED NOT DETECTED IU/mL [facility] HCV Log PCR <1.18 NOT DETECTED NOT DETECTED Log IU/mL [facility] Comment:For additional infor mation, please refer tohttp://education.[employer]/faq/XKD93c6(This link is being provided for informational/educational purposes only.)THIS TEST WAS PERFORMED AT:[address] [place] [phone] SMITH MD Blood 08/15/2024 10:5 6 AM EST 08/15/2024 2:33 PM EST us Katelynn Merida DATABASE MARKETING ANALYST LAB BLOOD ORDERABLES Final Res ult [facility] [address] [place] [phone] [phone] * (ABNORMAL) CBC auto differential (08/15/2024 10:56 AM EST) White Blood Count 8.3 4.8 - 10.8 X10*3/uL [facility] Red Blood Count 5.04 4.60 - 5.80 X10*6/uL [facility] Hemoglobin 13.7(L) 14.0 - 18.0 g/dl [facility] Hematocrit 41.4(L) 42.0 - 52.0 % [facility] Mean Corpuscular Volume 82.1 80.0 - 98.0 fL [facility] Mean Corpuscular Hemoglobin 27.2 27.0 - 33.0 pg [facility] Mean Corpuscular HGB Conc 33.1 31.0 - 36.0 g/dl [facility] Red Cell Distribution Width 13.2 11.0 - 16.0 % [facility] Platelet Count 357 160 - 400 X10*3/uL [facility] Mean Platelet Volume 10.3 9.4 - 12.4 fL [facility] Neutrophils Percent Auto 61.6 45 - 73 % [facility] Imm Gran Pct Auto 0.4 0.0 - 0.4 % [facility] Lymphocytes Percent Auto 30.0 20 - 40 % [facility] Monocytes Percent Auto 5.9 2 - 11 % [facility] Eosinophils Percent Auto 1.6 0 - 4 % [facility] Basophils Percent Auto 0.5 0 - 2 % [facility] NRBC Pct Auto 0.0 0.0 - 0.2 /100WBC [facility] Neutrophils Absolute Auto 5.1 2.0 - 8.3 x10*3/uL [facility] Imm Gran Abs Auto 0.03 0.00 - 0.03 X10*3/uL [facility] Lymphocytes Absolute Auto 2.5 1.2 - 4.9 X10*3/uL [facility] Monocytes Absolute Auto 0.5 0.1 - 1.2 X10*3/uL [facility] Eosinophils Absolute Auto 0.1 0.0 - 0.4 X10*3/uL [facility] Basophils Absolute Auto 0.0 0.0 - 0.2 X10*3/uL [facility] NRBC Abs Auto 0.000 0.0 - 0.012 X10*3/uL [facility] Blood Venous blood specimen / Unknown 08/15/2024 10:56 AM EST 08/15/2024 2:39 PM EST us Katelynn FUNG LAB BLOOD ORDERABLES Final Res ult [facility] [address] [place] [phone] * RPR (Monitor) with Reflex to??Titer (08/15/2024 10:56 AM EST) RPR (Monitor) w/Refl Titer NON-REACTI VE NON-REACT BEAN [facility] Comment:THIS TEST WAS PERFOR MED AT:[address] [place] [phone] SMITH MD Rapid Plasma Reagin Ab Titer TNP [facility] Blood Venous blood specimen / Unknown 08/15/2024 10:56 AM EST 08/15/2024 2:33 PM EST us Katelynn CEEP LAB BLOOD ORDERABLES Final Res ult Performing Organization Address City/[facility]/ZIP Co de Phone Number [facility] [address] [place] [phone] * HIV-1/2 Antigen and Antibodies, Fourth Generation, with Reflexes (08/15/2024 10:56 AM EST) HIV AB/AG Nonreactive Nonreactive [facility] Comment:HIV-1 p24 Ag and/or HIV-1/HIV-2 Ab not detected.A test result that is nonreactive does not exclude thepossibility of exposure to or infection with HIV-1 and/orHIV-2. Nonreactive results in this assay for individualswith prior exposure to HIV-1 and/or HIV-2 may be due toantigen and antibody levels that are below the limit ofdetection of this assay.[employer] HIV Ag/Ab Combo assay result andsupplemental assay results should be interpreted inconjunction with the patient's clinical presentation,history and other laboratory results. If the results areinconsistent with clinical evidence, additional testing issuggested to confirm the result. Blood Venous blood specimen / Unknown 08/15/2024 10:56 AM EST 08/15/2024 2:33 PM EST Katelynn Merida DATABASE MARKETING ANALYST LAB BLOOD ORDERABLES Final Res ult Performing Organization Address [facility]/ZIP Co de Phone Number [facility] [address] [place] [phone] [phone] * Hemoglobin A1c (08/15/2024 10:56 AM EST) Hemoglobin A1c 5.7 <6.0 % [facility] Comment:Hemoglobin A1C Refer ence Range Adults: 4.8 - 6.0 % Non diabetic: < 6.0 % Goal: < 7.0 %Additional Action Suggested: > 8.0 %Note: Hemoglobin A1c results are invalid for patients with abnormal amounts of HbF. Blood transfusions may impact the HbA1c concentration in the patient sample. Estimated Average Glucose 117 mg/dL [facility] Comment:eAG = Estimated ave rage glucose which is %A1C expressed asaverage glucose, using the formula of the T0D-AemucrxUxqihhf Glucose study (ADAG), Diabetes Care, Vol.31,#8,Jan. 2007 Blood Venous blood specimen / Unknown 08/15/2024 10:56 AM EST 08/15/2024 2:39 PM EST Katelynn Merida [facility] BLOOD ORDERABLES Final Res ult Performing Organization Address [facility]/RUST de Phone Number [facility] [address] [place] [phone] * (ABNORMAL) Lipid Panel, Standard (08/15/2024 10:56 AM EST) Triglycerides 98 <150 mg/dL [facility] Comment:Desirable Triglyceri de: less than 150 mg/dLBorderline High Triglyceride 150-199 mg/dLHigh Triglyceride: 200-499 mg/dLVery High Triglyceride: greater than or equal to 5OO mg/dL Cholesterol 179 <200 mg/dL [facility] Comment:Desirable Cholestero l: less than 200 mg/dLBorderline High Cholesterol: 200-239 mg/dLHigh Cholesterol: greater than 239 mg/dL LDL Cholesterol Calculated 126(H) <100 mg/dL [facility] Comment:Desirable LDL: less than 100 mg/dLNear Optimal/Above Optimal LDL: 110- 129 mg/dLBorderline High LDL: 130-159 mg/dLHigh LDL: 160-189 mg/dLVery High LDL: greater than or equal to 190 mg/dL HDL Cholesterol 34(L) >40 mg/dL [facility] Comment:Desirable HDL: great er than 40 mg/dL Note: This HDL assay may give artificially low results in patients with liver disease. Blood Venous blood specimen / Unknown 08/15/2024 10:56 AM EST 08/15/2024 2:33 PM EST Katelynn Merida [facility] BLOOD ORDERABLES Final Res ult Performing Organization Address [facility] Co de Phone Number [facility] [address] [place] [address] [phone] * (ABNORMAL) Comprehensive Metabolic Panel (08/15/2024 10:56 AM EST) Sodium 141 135 - 145 mmol/L [facility] Potassium 4.1 3.3 - 5.1 mmol/L [facility] Chloride 107 96 - 108 mmol/L [facility] Carbon Dioxide 26 22 - 29 mmol/L [facility] Anion Gap 12 12 - 20 [facility] Urea Nitrogen (BUN) 12 9 - 16 mg/dL [facility] Creatinine, Serum 1.01 0.5 - 1.4 mg/dL [facility] Estimated Glomerular Filt Rate >60 [facility] Comment:Chronic Kidney Disea se: Estimated GFR < 60 mL/min/1.78v9Jaatdv Kidney Disease: Estimated GFR < 15 mL/min/1.73m2 Glucose 80 60 - 115 mg/dL [facility] Calcium 9.9 8.4 - 10.2 mg/dL [facility] Bilirubin, Total 0.4 0.0 - 1.0 mg/dL [facility] Aspartate Amino Transferase 31 5 - 37 U/L [facility] Alanine Aminotransferase 45(H) 0 - 40 U/L [facility] Total Protein 7.7 6.5 - 8.0 g/dL [facility] Albumin Level 4.0 3.5 - 5.0 g/dL [facility] Alkaline Phosphatase 91 39 - 117 U/L [facility] Blood Venous blood specimen / Unknown 08/15/2024 10:56 AM EST 08/15/2024 2:33 PM EST us Katelynn Merida DATABASE MARKETING ANALYST LAB BLOOD ORDERABLES Final Res ult [facility] [address] [place] [phone] from Last 3 Months Insurance [address] [facility] STAND ADULT Care Teams Tieing Machine Operator Relationship Specialty Start Date End Date Katelynn Merida FNP [address] [place] [phone] PCP - General Family Medicine 8/28/22 Darvin Paul FNP [address] [place] [address] Nurse Practitioner Family Medicine 05/22/23
--- OUTSIDE RECORDS SUMMARY | 2024-08-22 13:44 | XMS_ITS | Encounter Summary ---
Author Organization [employer] [facility] Address [address] [place] [phone] Care Team Providers Care Custom Leather Products Maker Name Role Phone Katelynn Merida Primary Care Provider [phone] Darvin Paul Unavailable Unavailable Encounter Details Date Type Department Care Team (Late st Contact Info) Description 06/26/2022 Orders Only [facility] [address] [place], [place] [phone] Devora Young LPN Social History Tobacco Use Types Packs/Day Years Used Date Smoking Tobacco: Never Assessed Sex and Gender Information Value Date Recorded Sex Assigned at Male 04/17/2022 10:36 AM EDT Legal Sex Male 10:36 AM EDT Gender Identity Male 04/17/2022 10:36 AM EDT Sexual Orientation Straight 04/17/2022 10 :36 AM EDT documented as of this encounter Plan of Treatment Upcoming Encounters Date Type Department Care Team (Late st Contact Info) Description 10/21/2024 10:15 AM EDT Office Visit [facility] [address] [place] [address] Richmond Hunter MD [address] [place] [phone] documented as of this encounter Visit Diagnoses Not on filedocumented in this encounter Care Teams Custom Leather Products Maker Relationship Specialty Start Date End Date Katelynn Merida FNP [address] [place] [address] PCP - General Family Medicine 02/12/22 Darvin Paul FNP [address] [place] [address] Nurse Practitioner Family Medicine 05/22/23 documented as of this encounter
--- OUTSIDE RECORDS SUMMARY | 2024-08-22 13:44 | XMS_ITS | Encounter Summary ---
Author Organization [employer] Address [address] [facility] [address] [place] [address] Care Team Providers Care Toilet And Laundry Soap Supervisor Name Role Phone JamesKatelynn llamas PROCESS INSPECTOR Primary Care Provider [phone] Darvin Paul PROCESS INSPECTOR Unavailable Unavailable Encounter Details Date Type Department [...] Description 10/21/2024 10:15 AM EDT Office Visit [facility] [address] [place] [address] Richmond Hunter MD [address] [place] [address] documented as of this encounter Visit Diagnoses Not on filedocumented in this encounter Additional Health Concerns Assessment Noted Time PHQ-9 Depression Total Score: 7 03/03/20 24 1:35 PM EDT documented as of this encounter Care Teams Toilet And Laundry Soap Supervisor Relationship Specialty Start Date End Date Katelynn Merida FNP [address] [place] [address] PCP - General Family Medicine 02/12/22 Darvin Paul FNP [address] [place] [address] Nurse Practitioner Family Medicine 05/22/23 documented as of this encounter
--- OUTSIDE RECORDS SUMMARY | 2024-08-22 13:44 | XMS_ITS | Encounter Summary ---
Author Organization [employer] Address [address] [place] [phone] Care Team Providers Care Industrial Gas Servicer Supervisor Name Role Phone Katelynn Merida Primary Care Provider [phone] Darvin Paul Unavailable Unavailable Reason for Referral * Consultation (Routine) - Closed Specialty Diagnoses / Procedures Referred By Contac t Referred To Contact Dermatology / Family Medicine Diagnoses Skin tag Katelynn Merida FNP [address] [place] [address] Phone: tel: fax: Richmond Hunter MD [address] [place] [address] Phone: tel: fax: Referral ID Status Reason Start Date Expiration Date V isits Requested Visits Authorized [id number] Closed Consult and Treat 08/16/2024 08/16/2025 1 1 * Consultation (STAT) - Closed Specialty Diagnoses / Procedures Referred By Contac t Referred To Contact Psychiatry / Behavioral Health Diagnoses Mood disorder (CMS/HCC) Katelynn Merida FNP [address] [place] [address] Phone: tel: fax: Referral ID Status Reason Start Date Expiration Date V isits Requested Visits Authorized [id number] Closed Specialty Services Required 08/16/2024 08/16/2025 1 1 Encounter Details Date Type Department Care Team (Latest Contact Info) Description 08/15/2024 9:30 AM EST Office Visit [facility] PEDS [address] [place] [address] Katelynn Merida, KENT[place] [address] [place] [address] Encounter for routine history and physical examination of adult (Primary Dx); Dietary counseling; Exercise counseling; Low back pain at multiple sites; Mood disorder (CMS/HCC); Primary hypertension; Severe sleep apnea; Prediabetes; Hyperlipidemia, unspecified hyperlipidemia type; Encounter for immunization; Dermatitis; Routine health maintenance; Skin tag Social History Tobacco Use Types Packs/Day Years [...] end august to schedule with psych prescriber: [phone] Referral to Derm team for skin tag Xray of Lumbar Spine Lab work Hydrocortisone sent to pharmacy for eczema documented in this encounter Progress Notes * KENTON Wagner - 08/15/2024 9:30 AM EST Subjective: Gabriel Marrufo is a 29 y.o. male who presents to the office for a physical exam. Accompanied by stepfather. HPI: - Last PCP visit: 01/14/24 Mental health: Continues completing GED and experiencing difficulties with concentration. CompletedBE at [facility] February 2024. Following with therapist via telehealth through [facility] Reports completed ADHD eval June 2024 through [facility], report pending. No current psych prescriber through [facility] available,will refer urgently to establish with [facility] psych prescriber. Previously following with [facility] Paul. Chronic Low Back pain: Reports worsening over the past few months. Unable to stand for extended period of time or exert force without experiencing pain in low back that requires him to cease activity. Previously completed physical therapy with moderate improvement of symptoms. Will refer for lumbarx-ray for further eval. Encouraged to continue with TENS unit and other symptomatic management. No bowel/bladder incontinence or saddle paresthesia. Hypertension: Continues with lisinopril 20 mg daily. Home BP readings well- controlled. Continues with mindfulness of portion sizes. Has lost approximately 5 pounds since last appointment. Dry skin on inside of bilateral elbows Past Surgical History: Procedure Laterality Date HERNIA REPAIR Right 02/06/2022 Right inguinal repair with mesh placement. [facility] [place]. Gonzalez Social History Social History Narrative Living - lives with step-dad in a 2 family home. Employment - not employed, difficulty leaving house d/t mental health. Not currently seeking remotework. In process of completing his GED. Substance Use - Denies any of marijuana, tobacco, opioids, or other substances Sexual activity -female partner. Agrees to asymptomatic STI testing today. Currently using contraception. Allergies Allergen Reactions Lactose Diarrhea Review of Systems Constitutional: Negative for chills, fatigue and fever. HENT: Negative for congestion, mouth sores, sinus pressure and sore throat. Respiratory: Negative for cough, shortness of breath and wheezing. Cardiovascular: Negative for chest pain and palpitations. Gastrointestinal: Negative for constipation, diarrhea, nausea and vomiting. Genitourinary: Negative for dysuria. Musculoskeletal: Positive for back pain. Negative for arthralgias and gait problem. Skin: Positive for rash. Neurological: Negative for dizziness, seizures and weakness. Psychiatric/Behavioral: Positive for decreased concentration. Negative for suicidal ideas. The patient is not nervous/anxious. Visit Vitals BP 122/78 (BP Location: Right arm, Patient Position: Sitting, BP Cuff Size: Large adult) Pulse 66 Temp 97.2 ??F (36.2 ??C) (Oral) Resp 20 Ht 5' 11.63 (1.819 m) Wt 316 lb (143 kg) SpO2 98% BMI 43.30 kg/m?? Smoking Status Never BSA 2.69 m?? Physical Exam Vitals reviewed. Constitutional: General: He is not in acute distress. Appearance: Normal appearance. HENT: Head: Normocephalic and atraumatic. Right Ear: Tympanic membrane, ear canal and external ear normal. Left Ear: Tympanic membrane, ear canal and external ear normal. Nose: Nose normal. No congestion. Mouth/Throat: Mouth: Mucous membranes are moist. Pharynx: No oropharyngeal exudate or posterior oropharyngeal erythema. Eyes: General: Right eye: No discharge. Left eye: No discharge. Pupils: Pupils are equal, round, and reactive to light. Cardiovascular: Rate and Rhythm: Normal rate and regular rhythm. Pulmonary: Effort: Pulmonary effort is normal. No respiratory distress. Breath sounds: Normal breath sounds. No stridor. Abdominal: General: Bowel sounds are normal. There is no distension. Palpations: Abdomen is soft. Musculoskeletal: General: Normal range of motion. Cervical back: No tenderness. Comments: Back: No erythema, edema, or ecchymosis. (+) tenderness to palpation lumbar paraspinal muscles bilaterally. Full range of motion, but elicited slight discomfort. Skin: General: Skin is warm. Comments: Left anterior elbow: Dry, erythematous papules Left groin: skin tag ~5mm diameter Neurological: Mental Status: He is alert and oriented to person, place, and time. Psychiatric: Mood and Affect: Mood normal. Behavior: Behavior normal. Problem List Items Addressed This Visit Nervous Severe sleep apnea Overview Sleep study completed Jun 2022 CPAP supplies through [facility] Following with [facility] Sleep Medicine Circulatory Primary hypertension Current Assessment & Plan Continues with lisinopril 20mg daily BP goal < 140/90 mmHg Well controlled Encourage low salt diet and routine physical movement Endocrine/Metabolic Prediabetes Overview Lab Results Component Value Date HGBA1C 5.7 08/15/2024 Current Assessment & Plan Encouraged to continue lifestyle interventions. Other Hyperlipidemia Overview Lab Results Component Value Date CHOL 179 08/15/2024 CHOL 175 04/09/2023 TRIG 98 08/15/2024 TRIG 114 04/09/2023 HDL 34 (L) 08/15/2024 HDL 32 (L) 04/09/2023 LDLCHOLCAL 126 (H) 08/15/2024 LDLCHOLCAL 121 (H) 04/09/2023 -continue lifestyle modification Routine health maintenance Overview -PE: 08/15/2024 Mood disorder (CMS/HCC) Current Assessment & Plan Previously following with J[facility] Paul for psych med management Per J[place]ICA Paul: consistent with BP 2, with weeks-long periods of excess energy, decreased need for sleep, irritability, and other discrete periods of depression and sadness. Supported by poor response to SSRI, and recent ?hypomania after starting Wellbutrin. Mother has BPD as well Continues with depakote 250mg BID Following with therapist through [facility] Reports ADHD eval completed June 2024 through [facility], encouraged to request reports. Please bring to appointment with ELECTRICAL DESIGN TECHNOLOGIST Tavon?? Man Referral to establish with psych prescriber through [facility] Relevant Orders Referral to Behavioral Health Psychiatry Low back pain at multiple sites Current Assessment & Plan Describes worsening of symptoms over the past few months limiting ability to function in daily life. No red flag symptoms in history or on exam. Chronic low back, previously following with physical therapy with moderate symptom relief Lumbar x-ray for further eval Encouraged to continue with symptomatic management Relevant Orders XR Lumbar Spine 2-3 Views Other Visit Diagnoses Encounter for routine history and physical examination of adult - Primary -Cardiopulmonary exam WNL -Encouraged healthy lifestyle habits including routine physical exercise and diet rich in fruits and vegetables Relevant Orders Lipid Panel, Standard (Completed) Hemoglobin A1c (Completed) TSH with Reflex to Free T4 (Completed) Comprehensive Metabolic Panel (Completed) CBC auto differential (Completed) Chlamydia/N. Gonorrhoeae RNA, TMA, Urogenitial (Completed) Hepatitis C Viral RNA, Quantitative, Real-Time PCR RPR (Monitor) with Reflex to Titer HIV-1/2 Antigen and Antibodies, Fourth Generation, with Reflexes Dietary counseling Exercise counseling Encounter for immunization Relevant Orders FLU VACCINE TRIVALENT (Fluarix) 6 mo + (Completed) COVID-19 VACCINE (Pfizer) [id number] 12 yrs + (Completed) Dermatitis - Trial of hydrocortisone 2.5% twice daily x 1 week. Encouraged to call if symptoms worsen or persist. Relevant Medications hydrocortisone 2.5 % cream Skin tag Relevant Orders Referral to [facility] Derm Skin Follow up: 3 months back pain, sooner as needed. Current Outpatient Medications Medication Sig Dispense Refill Blood Pressure Monitor kit Use to check blood pressure as directed and when symptomatic. Dx: hypertension. 1 kit 0 divalproex (Depakote ER) 250 MG 24 hr tablet Take 2 tablets (500 mg) by mouth 2 times daily. Do notcrush, chew, or split. 360 tablet 3 hydrocortisone 2.5 % cream Apply pea sized amount to skin bid for 1 week 15 g 0 lidocaine (Lidoderm) 5 % patch Apply 1 patch topically in the morning. Remove & discard patch within 12 hours or as directed by MD. 30 patch 3 lisinopril 20 MG tablet TAKE 1 TABLET (20 MG) BY MOUTH IN THE MORNING. FOR BLOOD PRESSURE 90 tablet3 No current facility-administered medications for this visit. Immunization History Administered Date(s) Administered Hep B, adult 04/24/2023, 05/22/2023, 08/21/2023 Influenza injectable quadrivalent preservative free 03/24/2022, 04/09/2023 Influenza, seasonal, injectable, preservative free 08/15/2024 Pfizer Covid-19 Vaccine 12+ 03/10/2021, 04/01/2021, 08/15/2024 Tdap 03/24/2022 documented in this encounter Miscellaneous Notes * Assessment & Plan Note - KENTON Wagner - 08/16/2024 6:24 PM ESTAssociated Problem(s): Prediabetes Encouraged to continue lifestyle interventions. * Assessment & Plan Note - KENTON [...] depakote 250mg BID Following with therapist through [facility] Reports ADHD eval completed June 2024 through [facility], encouraged to request reports. Please bring to appointment with ELECTRICAL DESIGN TECHNOLOGIST Tavon?? Man Referral to establish with psych prescriber through [facility] * Assessment & Plan Note - KENTON Wagner - 08/15/2024 6:39 AM ESTAssociated Problem(s): Low back pain at multiple sites Describes worsening of symptoms over the past few months limiting ability to function in daily life. No red flag symptoms in history or on exam. Chronic low back, previously following with physical therapy with moderate symptom relief Lumbar x-ray for further eval Encouraged to continue with symptomatic management documented in this encounter Plan of Treatment Upcoming Encounters Date Type Department Care Team (Late st Contact Info) Description 10/21/2024 10:15 AM EDT Office Visit [facility] PEDS [address] [place] [address] Richmond Hunter MD [address] [place] [address] Scheduled Orders Name Type Priority Associated Diagnoses Orde r Schedule XR Lumbar Spine 2-3 Views Imaging Routine Low back pain at multiple sites Expected: 08/15/2024, Expires: 08/15/2025 Scheduled Referrals Name Type Priority Associated Diagnoses Order Schedule Referral to Behavioral Health Psychiatry Outpatient Referral STAT Mood disorder ([facility] [address]) Expected: 08/16/2024 (Approximate), Expires: 08/16/2025 Referral to [facility] Derm Skin Outpatient Referral Routine Skin tag Expected: 08/16/2024 (Approximate), Expires: 08/16/2025 documented as of this encounter Procedures Procedure Name Priority Date/Time Associated Diagnosis [...] routine history and physical examination of adult documented in this encounter Results * Chlamydia/N. Gonorrhoeae RNA, TMA, Urogenitial (08/15/2024 11:00 AM EST) CT PCR NOT DETECTED Not Detect. [facility] Comment:A not detected test result does [...] psychologicalconsequences. NG PCR NOT DETECTED Not Detect. [facility] Comment:A not detected test result does [...] AM EST 08/15/2024 2:40 PM EST Narrative [facility] - 08/15/2024 4:30 PM EST Urine Katelynn Merida [facility] MICROBIOLOGY - GENERAL ORD ERABLES Final Result [facility] [address] [place] [phone] * HIV-1/2 Antigen and Antibodies, Fourth Generation, with Reflexes (08/15/2024 10:56 AM EST) HIV AB/AG Nonreactive Nonreactive [facility] Comment:HIV-1 p24 Ag and/or HIV-1/HIV-2 Ab not detected.A test result that is nonreactive does not exclude thepossibility of exposure to or infection with HIV-1 and/orHIV-2. Nonreactive results in this assay for individualswith prior exposure to HIV-1 and/or HIV-2 may be due toantigen and antibody levels that are below the limit ofdetection of this assay.The [employer] HIV Ag/Ab Combo assay result andsupplemental assay results should be interpreted inconjunction with the patient's clinical presentation,history and other laboratory results. If the results areinconsistent with clinical evidence, additional testing issuggested to confirm the result. Blood Venous blood specimen / Unknown 08/15/2024 10:56 AM EST 08/15/2024 2:33 PM EST Katelynn Bioceptivemuriel [facility] BLOOD ORDERABLES Final Res ult Performing Organization Address [facility]/ZIP Co de Phone Number [facility] [address] [place] [phone] * RPR (Monitor) with Reflex to??Titer (08/15/2024 10:56 AM EST) RPR (Monitor) w/Refl Titer NON-REACTI VE NON-REACT BEAN [facility] Comment:THIS TEST WAS PERFOR MED AT:[employer] [place] [phone] SMITH MD Rapid Plasma Reagin Ab Titer TNP [facility] Blood Venous blood specimen / Unknown 08/15/2024 10:56 AM EST 08/15/2024 2:33 PM EST us Katelynn Phalen COMPUTER SCIENCES PROFESSOR LAB BLOOD ORDERABLES Final Res ult Performing Organization Address City/[facility]/ZIP Co de Phone Number [facility] [address] [place] [address] [phone] * Hepatitis C Viral RNA, Quantitative, Real-Time PCR (08/15/2024 10:56 AM EST) [facility] Hepatitis C Viral Load <15 NOT DETECTED NOT DETECTED IU/mL [facility] HCV Log PCR <1.18 NOT DETECTED NOT DETECTED Log IU/mL [facility] Comment:For additional infor geoffrey, please refer [email or web address]/[email or web address](This link is being provided for informational/educational purposes only.)THIS TEST WAS PERFORMED AT:[employer] [place] [phone] SMITH MD Blood 08/15/2024 10:5 6 AM EST 08/15/2024 2:33 PM EST Katelynn Merida COMPUTER SCIENCES PROFESSOR LAB BLOOD ORDERABLES Final Res ult [facility] [address] [place] [phone] [phone] * (ABNORMAL) CBC auto differential (08/15/2024 10:56 AM EST) [facility] White Blood Count 8.3 4.8 - 10.8 X10*3/uL [facility] Red Blood Count 5.04 4.60 - 5.80 X10*6/uL [facility] Hemoglobin 13.7(L) 14.0 - 18.0 g/dl [facility] Hematocrit 41.4(L) 42.0 - 52.0 % [facility] Mean Corpuscular Volume 82.1 80.0 - 98.0 fL [facility] Mean Corpuscular Hemoglobin 27.2 27.0 - 33.0 pg [facility] Mean Corpuscular HGB Conc 33.1 31.0 - 36.0 g/dl [facility] Red Cell Distribution Width 13.2 11.0 - 16.0 % [facility] Platelet Count 357 160 - 400 X10*3/uL [facility] Mean Platelet Volume 10.3 9.4 - 12.4 fL [facility] Neutrophils Percent Auto 61.6 45 - 73 % [facility] Imm Gran Pct Auto 0.4 0.0 - 0.4 % [facility] Lymphocytes Percent Auto 30.0 20 - 40 % [facility] Monocytes Percent Auto 5.9 2 - 11 % [facility] Eosinophils Percent Auto 1.6 0 - 4 % [facility] Basophils Percent Auto 0.5 0 - 2 % [facility] NRBC Pct Auto 0.0 0.0 - 0.2 /100WBC [facility] Neutrophils Absolute Auto 5.1 2.0 - 8.3 x10*3/uL [facility] Imm Gran Abs Auto 0.03 0.00 - 0.03 X10*3/uL [facility] Lymphocytes Absolute Auto 2.5 1.2 - 4.9 X10*3/uL [facility] Monocytes Absolute Auto 0.5 0.1 - 1.2 X10*3/uL [facility] Eosinophils Absolute Auto 0.1 0.0 - 0.4 X10*3/uL [facility] Basophils Absolute Auto 0.0 0.0 - 0.2 X10*3/uL [facility] NRBC Abs Auto 0.000 0.0 - 0.012 X10*3/uL [facility] Blood Venous blood specimen / Unknown 08/15/2024 10:56 AM EST 08/15/2024 2:39 PM EST us Katelynn Merida COMPUTER SCIENCES PROFESSOR LAB BLOOD ORDERABLES Final Res ult [facility] [address] [place] [phone] * (ABNORMAL) Comprehensive Metabolic Panel (08/15/2024 10:56 AM EST) Sodium 141 135 - 145 mmol/L [facility] Potassium 4.1 3.3 - 5.1 mmol/L [facility] Chloride 107 96 - 108 mmol/L [facility] Carbon Dioxide 26 22 - 29 mmol/L [facility] Anion Gap 12 12 - 20 [facility] Urea Nitrogen (BUN) 12 9 - 16 mg/dL [facility] Creatinine, Serum 1.01 0.5 - 1.4 mg/dL [facility] Estimated Glomerular Filt Rate >60 [facility] Comment:Chronic Kidney Disea se: Estimated GFR < 60 mL/min/[id number] Kidney Disease: Estimated GFR < 15 mL/min/1.73m2 Glucose 80 60 - 115 mg/dL [facility] Calcium 9.9 8.4 - 10.2 mg/dL [facility] Bilirubin, Total 0.4 0.0 - 1.0 mg/dL [facility] Aspartate Amino Transferase 31 5 - 37 U/L [facility] Alanine Aminotransferase 45(H) 0 - 40 U/L [facility] Total Protein 7.7 6.5 - 8.0 g/dL [facility] Albumin Level 4.0 3.5 - 5.0 g/dL [facility] Alkaline Phosphatase 91 39 - 117 U/L [facility] Blood Venous blood specimen / Unknown 08/15/2024 10:56 AM EST 08/15/2024 2:33 PM EST Katelynn FUNG LAB BLOOD ORDERABLES Final Res ult [facility] [address] [place] [phone] * TSH with Reflex to Free T4 (08/15/2024 10:56 AM EST) TSH reflex Free T4 1.54 0.32 - 4.0 uIU/mL [facility] Blood 08/15/2024 10:5 6 AM EST 08/15/2024 2:33 PM EST Katelynn CEEP LAB BLOOD ORDERABLES Final Res ult Performing Organization Address [facility] Co de Phone Number [facility] [address] [place] [phone] * Hemoglobin A1c (08/15/2024 10:56 AM EST) Hemoglobin A1c 5.7 <6.0 % [facility] Comment:Hemoglobin A1C Refer ence Range Adults: 4.8 - 6.0 % Non diabetic: < 6.0 % Goal: < 7.0 %Additional Action Suggested: > 8.0 %Note: Hemoglobin A1c results are invalid for patients with abnormal amounts of HbF. Blood transfusions may impact the HbA1c concentration in the patient sample. Estimated Average Glucose 117 mg/dL [facility] Comment:eAG = Estimated ave rage glucose which is %A1C expressed asaverage glucose, using the formula of the [id number] Glucose study (ADAG), Diabetes Care, Vol.31,#8,Jan. 2007 Blood Venous blood specimen / Unknown 08/15/2024 10:56 AM EST 08/15/2024 2:39 PM EST Katelynn Merida [facility] BLOOD ORDERABLES Final Res ult Performing Organization Address [facility] Co de Phone Number [facility] [address] [place] [phone] * (ABNORMAL) Lipid Panel, Standard (08/15/2024 10:56 AM EST) Triglycerides 98 <150 mg/dL [facility] Comment:Desirable Triglyceri de: less than 150 mg/dLBorderline High Triglyceride 150-199 mg/dLHigh Triglyceride: 200-499 mg/dLVery High Triglyceride: greater than or equal to 5OO mg/dL Cholesterol 179 <200 mg/dL [facility] Comment:Desirable Cholestero l: less than 200 mg/dLBorderline High Cholesterol: 200-239 mg/dLHigh Cholesterol: greater than 239 mg/dL LDL Cholesterol Calculated 126(H) <100 mg/dL [facility] Comment:Desirable LDL: less than 100 mg/dLNear Optimal/Above Optimal LDL: 110- 129 mg/dLBorderline High LDL: 130-159 mg/dLHigh LDL: 160-189 mg/dLVery High LDL: greater than or equal to 190 mg/dL HDL Cholesterol 34(L) >40 mg/dL [facility] Comment:Desirable HDL: great er than 40 mg/dL Note: This HDL assay may give artificially low results in patients with liver disease. Blood Venous blood specimen / Unknown 08/15/2024 10:56 AM EST 08/15/2024 2:33 PM EST us Katelynn FUNG LAB BLOOD ORDERABLES Final Res ult [facility] [address] [place] [phone] documented in this encounter Visit Diagnoses Diagnosis Encounter for routine history and physical examination of adult- Primary Dietary counseling Dietary surveillance and counseling Exercise counseling Low back pain at multiple sites Mood disorder (CMS/HCC) Unspecified episodic mood disorder Primary hypertension Unspecified essential hypertension Severe sleep apnea Prediabetes Other abnormal glucose Hyperlipidemia, unspecified hyperlipidemia type Encounter for immunization Dermatitis Contact dermatitis and other eczema, due to unspecified cause Routine health maintenance Unspecified examination Skin tag Unspecified hypertrophic and atrophic condition of skin documented in this encounter Additional Health Concerns Assessment Noted Time PHQ-9 Depression Total Score: 7 03/03/20 24 1:35 PM EDT documented as of this encounter Care Teams Industrial Gas Servicer Supervisor Relationship Specialty Start Date End Date Katelynn Merida FNP [address] [place] [address] PCP - General Family Medicine 02/12/22 Darvin Paul FNP [address] [place] [address] Nurse Practitioner Family Medicine 05/22/23 documented as of this encounter
--- OUTSIDE RECORDS SUMMARY | 2024-08-22 13:44 | XMS_ITS | Encounter Summary ---
Author Organization [employer] Address [address] [place] [address] 7t [place] [address] Care Team Providers Care On Site Coordinator Name Role Phone JamesmurielKatelynn Primary Care Provider [phone] Darvin PaulP Unavailable Unavailable Encounter Details Date Type Department Care Team ([facility] st Contact Info) Description 08/18/2024 Telephone [facility] MED[facility]INE [address] [place], [place] [phone] Radha Sevilla, JEVON Social History Tobacco Use Types Packs/Day Years [...] encounter Miscellaneous Notes * Telephone Encounter - Radha Sevilla RN - 08/18/2024 11:06 AM EST Tc to pt to let them know per PCP Hyperlipidemia: elevated LDL at 126, goal less than 100. Pleasereview lifestyle interventions. Mild elevation of one of his protein levels, this can commonly be caused by increased deposits of carbohydrates/fats in liver. Rec lifestyle interventions as above. STI testing thus far negative. Testing for thyroid, kidney function, blood counts wnl. Thanks! Pt verbalized understanding and no further questions or concerns at this time. * Telephone Encounter - Radha Sevilla RN - 08/18/2024 11:06 AM EST ----- Message from Katelynn Merida sent at 08/18/2024 9:31 AM EST ----- Please call to review labs: - Hyperlipidemia: elevated LDL at 126, goal less than 100. Please review lifestyle interventions. - Mild elevation of one of his protein levels, this can commonly be caused by increased deposits ofcarbohydrates/fats in liver. Rec lifestyle interventions as above. - STI testing thus far negative - Testing for thyroid, kidney function, blood counts wnl Thanks! documented in this encounter Plan of Treatment Upcoming Encounters Date Type Department Care Team (Late st Contact Info) Description 10/21/2024 10:15 AM EDT Office Visit [facility] MED & PEDS [address] [place] [address] Richmond Hunter MD [address] [place] [address] documented as of this encounter Visit Diagnoses Not on filedocumented in this encounter Additional Health Concerns Assessment Noted Time PHQ-9 Depression Total Score: 7 03/03/20 24 1:35 PM EDT documented as of this encounter Care Teams On Site Coordinator Relationship Specialty Start Date End Date Katelynn Merida FNP [address] [place] [address] PCP - General Family Medicine 02/12/22 Darvin Paul FNP [address] [place] [address] Nurse Practitioner Family Medicine 05/22/23 documented as of this encounter
--- OUTSIDE RECORDS SUMMARY | 2024-08-22 13:44 | XMS_ITS | Encounter Summary ---
Author Organization [email or web address] Address [address] [place] [address] 7 [place] [address] Care Team Providers Care Fur Nailer Name Role Phone Katelynn Merida Primary Care Provider [phone] Darvin Paul Unavailable Unavailable Reason for Visit * Reason Comments Pre-visit Planning Pre visit planning L VM Encounter Details Date Type Department Care Team ([facility] st Contact Info) Description 07/31/2024 Patient Outreach [facility] MEDICINE [address] [place] [address] Katelynn Merida FNP [address] [place] [address] Pre-visit Planning (Pre visit planning LVM ) [...] Upcoming Encounters Date Type Department Care Team ([facility] st Contact Info) Description 10/21/2024 10:15 AM EDT Office Visit [facility] MED & PEDS [address] [place] [address] Richmond Hunter MD [address] [place] [address] documented as of this encounter Visit Diagnoses Not on filedocumented in this encounter Additional Health Concerns Assessment Noted Time PHQ-9 Depression Total Score: 7 03/03/20 24 1:35 PM EDT documented as of this encounter Care Teams Fur Nailer Relationship Specialty Start Date End Date Katelynn Merida FNP [address] [place] [address] PCP - General Family Medicine 02/12/22 Darvin Paul FNP [address] [place] [address] Nurse Practitioner Family Medicine 05/22/23 documented as of this encounter
--- OUTSIDE RECORDS SUMMARY | 2024-08-22 13:44 | XMS_ITS | Encounter Summary ---
Author Organization [employer] Address [address] [place] [address] 7 [place] [address] Care Team Providers Care Machine Whitener Name Role Phone Jamesmuriel Katelynn KENTON Primary Care Provider [phone] Darvin Paul POULTRY SCALDER Unavailable Unavailable Reason for Visit * Reason Onset Date Comments Chart Prep 08/12/2024 Encounter Details Date Type Department Care Team ([facility] Contact Info) Description 08/12/2024 Telephone [facility] MED & PEDS [address] [place] [address] Ronda Connors MA Chart Prep Social History [...] Upcoming Encounters Date Type Department Care Team ([facility] st Contact Info) Description 10/21/2024 10:15 AM EDT Office Visit [facility] MED & PEDS [address] [place] [address] Richmond Hunter MD [address] [place] [address] documented as of this encounter Visit Diagnoses Not on filedocumented in this encounter Additional Health Concerns Assessment Noted Time PHQ-9 Depression Total Score: 7 03/03/20 24 1:35 PM EDT documented as of this encounter Care Teams Machine Whitener Relationship Specialty Start Date End Date Katelynn Merida FNP [address] [place] [phone] PCP - General Family Medicine 02/12/22 Darvin Paul FNP [address] [place] [phone] Nurse Practitioner Family Medicine 05/22/23 documented as of this encounter
--- OUTSIDE RECORDS SUMMARY | 2024-08-22 13:44 | XMS_ITS | Encounter Summary ---
Author Organization [email or web address] Address [address] [place] [address] 7t [place] [address] Care Team Providers Care Phlebotomy Services Technician Name Role Phone Katelynn Merida Primary Care Provider [phone] Darvin Paul Unavailable Unavailable Reason for Visit * Reason Comments Care Coordination [facility] outreach for [facility] H food needs-referral completed Encounter Details Date Type Department Care Team (Latest Contact Info) Description 08/15/2024 Patient Outreach [facility] MED & PEDS [address] [place] [address] Katelynn Merida FNP [address] [place] [address] Care Coordination ([facility] outreach for SDOH food [...] Wednesdays, and Walk-In Urgent Care Located in [facility].Patient provided with after-hours line for [facility], , which offer night time triage serviceand option to transfer to bond trader provider if needed. documented in this encounter Plan of Treatment Upcoming Encounters Date Type Department Care Team (Late st Contact Info) Description 10/21/2024 10:15 AM EDT Office Visit [facility] MED & PEDS [address] [place] [address] Richmond Hunter MD [address] [place] [address] documented as of this encounter Visit Diagnoses Not on filedocumented in this encounter Additional Health Concerns Assessment Noted Time PHQ-9 Depression Total Score: 7 03/03/20 24 1:35 PM EDT documented as of this encounter Care Teams Phlebotomy Services Technician Relationship Specialty Start Date End Date Katelynn Merida FNP [address] [place] [address] PCP - General Family Medicine 02/12/22 Darvin Paul FNP [address] [place] [address] Nurse Practitioner Family Medicine 05/22/23 documented as of this encounter
== END 2024-08-22 11:53 | disposition home or self-care (01) ==
LOC: HO.HHCX 11:52
PROVIDERS: Visit Provider Registered Nurse
DX: M54.50 Low back pain, unspecified (principal)
CPT/HCPCS: 72100

== ENCOUNTER → 2024-08-22 11:52 | Outpatient (BNV) | payer MEDICAID, SELFPAY | PROVIDERS: Visit Provider Radiology Diagnostic Radiology | DX: M54.50 Low back pain, unspecified (principal) | CPT/HCPCS: 72100 ==

== ENCOUNTER 2025-01-28 11:15 | Outpatient (REF) | payer MEDICAID, SELFPAY ==
--- OUTSIDE RECORDS SUMMARY | 2025-01-28 12:16 | XMS_ITS | Clinical Summary ---
Author Organization [employer] Address [address] [facility] 7t [place] [address] Care Team Providers Care Public Health Technologist Name Role Phone Katelynn Merida Primary Care Provider [phone] Darvin Paul Unavailable Unavailable Allergies Active Allergy Reactions Criticality [...] crush, chew, or split. 120 tablet 1 11/18/19 25 Active busPIRone (Buspar) 5 MG tabletIndicatio ns:Anxiety Take 1 tablet (5 mg) by mouth 2 times daily. 60 tablet 1 01/15/20 25 025 Active divalproex (Depakote ER) 250 MG 24 hr tabletIndicatio ns:Mood disorder (CMS/HCC) Take 3 tablets orally every day. Do not crush, chew, or split. 270 tablet 1 08/08/19 23 Discontinued(Re order (will not trigger notification to Pharmacy)) busPIRone (Buspar) 5 MG tabletIndicatio ns:Anxiety Take 1 tablet (5 mg) by mouth 2 times daily. 60 tablet 1 11/18/19 25 025 Discontinued(Re order (will not trigger notification [...] Assessment & Plan (04/09/2023 7:32 AM EDT): Following with physical therapy Mood disorder 08/08/2022 [...] depakote 250mg BID Following with therapist through [facility] Reports ADHD eval completed June 2024 through [facility], encouraged to request reports. Please bring to appointment with PERFUMER Tavon Man Referral to establish with psych prescriber through [facility] Assessment & Plan (11/23/2023 2:13 PM EDT): [...] Assessment & Plan (04/09/2023 7:30 AM EDT): Following with [place] Paul in [facility] Psychopharm clinic Current med regimen: depakote ER 500mg BID Established with therapist Assessment & Plan (03/13/2023 [...] study completed Jun 2022 CPAP supplies through [facility] Following with [facility] Assessment & Plan (10/25/2022 9:35 AM EDT): CPAP machine arrived Follow up with sleep [...] Assessment & Plan (04/10/2023 2:25 PM EDT): Continues with lisinopril 20mg daily BP goal < 140/90 mmHg, well controlled Encourage low salt diet and routine [...] organization. Date Type Department Care Team Description 01/14/2025 Refill [facility] MED & PEDS [address] [place] [address] Katelynn Merida FNP Anxiety 12/26/2024 Orders Only [facility] MED & PEDS [address] [place] [address] Katelynn Merida FNP from Last 3 Months Immunizations Immunization Administration Dates Next Due Hep B, adult [...] Sign Reading Time Taken Comments Blood Pressure 144/90 10/21/2024 10:14 AM EDT Pulse 57 10/21/2024 10:14 AM EDT Temperature 36.7 C (98 F) 10/21/2024 10:14 AM EDT Respiratory Rate 20 10/21/2024 10:14 AM EDT Oxygen Saturation 98% 10/21/2024 10:14 AM EDT Inhaled Oxygen Concentration - - Weight 147 kg (323 lb) 10/21/2024 10:14 AM EDT Height 181.9 cm (5' 11.63 ) 10/21/2024 10:14 AM EDT Body Mass Index 44.26 10/21/2024 10:14 AM EDT Plan of Treatment Health Maintenance Due Date Last Done Comments Dental Oral Exam 1993 Dental Prophylaxis 1993 Dental X-Ray: Bitewings 1993 Alcohol/Substance Use Screening 2005 HPV Vaccines (1 - Male 3-dose series) 2008 Dental X-Ray: Full Mouth 01/05/2024 01/03/2021 Influenza Vaccine (#1) 2025 , 04/09/2023, 03/24/2022 Depression Screening 03/03/2025 03/03/2024, 03/03/20 24 Diabetes: Hemoglobin A1C 08/15/2025 025, 04/09/2023, 08/03/2022, Additional history exists SDOH Screening 08/15/2025 08/15/2024 Family Planning (PISQ) 08/16/2025 08/16/2024 Disability Screening 10/20/2025 10/20/2024 Tobacco Screening 11/17/2025 11/17/2024 Lipid Panel 08/15/2029 08/15/2024, 03/19, 03/24/2022, Additional [...] 02/09/2021 Hepatitis C Screening Completed 08/15/2024, 023 HIB Vaccines Aged Out No longer eligi ble based on patient's age to complete this topic Hepatitis A Vaccines Aged Out No long er eligible based on patient's age to complete this topic IPV Vaccines Aged Out No longer eligi ble based on patient's age to complete this topic Meningococcal B Vaccine Aged Out No l onger eligible based on patient's age to complete this topic Meningococcal Vaccine Aged Out No anna eleanor eligible based on patient's age to complete this topic Pneumococcal Vaccine: Pediatrics (0 to 5 Years) and At-Risk Patients (6 to 49) Years Aged Out No longer eligible based on patient's age to complete this topic RSV under 20 months Aged Out No longe r eligible based on patient's age to complete this topic Rotavirus Vaccines Aged Out No longer eligible based on patient's age to complete this topic Procedures Procedure Name Priority Date/Time Associated Diagnosis Comments HEPATITIS C VIRAL RNA, QUANTITATIVE, REAL-TIME PCR [...] Recently Relevant to Health Maintenance Results * Hepatitis C Viral RNA, Quantitative, Real-Time PCR (08/15/2024 10:56 AM EST) Pathologist [facility] Hepatitis C Viral Load <15 NOT DETECTED NOT DETECTED IU/mL [facility] HCV Log PCR <1.18 NOT DETECTED NOT DETECTED Log IU/mL [facility] Comment:For additional infor mation, please refer tohttp://education.[employer]/faq/EFT67w1(This link is being provided for informational/educational purposes only.)THIS TEST WAS PERFORMED AT:[facility] [place] [phone] SMITH MD Blood 08/15/2024 10:5 6 AM EST 08/15/2024 2:33 PM EST Katelynn Merida [facility] BLOOD ORDERABLES Final Res ult [facility] [address] [place] [phone] * HIV-1/2 Antigen and Antibodies, Fourth Generation, with Reflexes (08/15/2024 10:56 AM EST) Pathologist [facility] HIV AB/AG Nonreactive Nonreactive [facility] Comment:HIV-1 p24 Ag and/or HIV-1/HIV-2 Ab not detected.A test result that is nonreactive does not exclude thepossibility of exposure to or infection with HIV-1 and/orHIV-2. Nonreactive results in this assay for individualswith prior exposure to HIV-1 and/or HIV-2 may be due toantigen and antibody levels that are below the limit ofdetection of this assay.The [facility] HIV Ag/Ab Combo assay result andsupplemental assay results should be interpreted inconjunction with the patient's clinical presentation,history and other laboratory results. If the results areinconsistent with clinical evidence, additional testing issuggested to confirm the result. Blood Venous blood specimen / Unknown 08/15/2024 10:56 AM EST 08/15/2024 2:33 PM EST Katelynn Merida [facility] BLOOD ORDERABLES Final Res ult Performing Organization Address [facility]/ZIP Co de Phone Number [facility] [address] [place] [phone] * Hemoglobin A1c (08/15/2024 10:56 AM EST) Hemoglobin A1c 5.7 <6.0 % [facility] Comment:Hemoglobin A1C Refer ence Range Adults: [...] asaverage glucose, using the formula of the [id number] Glucose study (ADAG), Diabetes Care, Vol.31,#8,Jan. 2007 Blood Venous blood specimen / Unknown 08/15/2024 10:56 AM EST 08/15/2024 2:39 PM EST Katelynn Merida [facility] BLOOD ORDERABLES Final Res ult Performing Organization Address [facility]/ZIP Co de Phone Number [facility] [address] [place] [phone] * (ABNORMAL) Lipid Panel, Standard (08/15/2024 10:56 AM EST) Triglycerides 98 <150 mg/dL [facility] Comment:Desirable Triglyceri de: less than 150 [...] 190 mg/dL HDL Cholesterol 34(L) >40 mg/dL [facility] Comment:Desirable HDL: great er than 40 mg/dL Note: This HDL assay may give artificially low results in patients with liver disease. Blood Venous blood specimen / Unknown 08/15/2024 10:56 AM EST 08/15/2024 2:33 PM EST us Katelynn Merida [facility] BLOOD ORDERABLES Final Res ult [facility] [address] [place] [address] [phone] from Last 3 Months or Most Recently Relevant to Health Maintenance [place] [address] [place] [address] [employer] [employer] [place] AD[place] Care Teams Public Health Technologist Relationship Specialty Start Date End Date Katelynn Merida FNP [address] [place] [phone] PCP - General Family Medicine 02/12/22 Darvin Paul FNP [address] [place] [phone] Nurse Practitioner Family Medicine 05/22/23
[2025-01-28 14:14] LABS: MANUAL DIFF FLAG NO
[2025-01-28 14:19] LABS: Hematocrit 41.1 % (42.0-52.0); Hemoglobin 14.1 g/dl (14.0-18.0); Imm Gran Abs Auto 0.03 X10*3/uL (0.00-0.03); Imm Gran Pct Auto 0.4 % (0.0-0.4); Lymphocytes Absolute Auto 2.5 X10*3/uL (1.2-4.9); Mean Corpuscular HGB Conc 34.3 g/dl (31.0-36.0); Mean Corpuscular Hemoglobin 27.6 pg (27.0-33.0); Mean Corpuscular Volume 80.4 fL (80.0-98.0); NRBC Abs Auto 0.000 X10*3/uL (0.0-0.012); NRBC Pct Auto 0.0 /100WBC (0.0-0.2); Platelet Count 365 X10*3/uL (160-400); Red Blood Count 5.11 X10*6/uL (4.60-5.80); White Blood Count 8.2 X10*3/uL (4.8-10.8)
[2025-01-28 14:41] LABS: Alanine Aminotransferase 41 U/L (0-40); Albumin Level 4.2 g/dL (3.5-5.0); Alkaline Phosphatase 87 U/L (39-117); Anion Gap 12 (12-20); Aspartate Amino Transferase 32 U/L (5-37); Blood Urea Nitrogen 12 mg/dL (9-16); Calcium 9.2 mg/dL (8.4-10.2); Carbon Dioxide 29 mmol/L (22-29); Chloride 104 mmol/L (96-108); Estimated Glomerular Filt Rate > 60; Potassium 4.1 mmol/L (3.3-5.1); Sodium 141 mmol/L (135-145); Total Protein 7.2 g/dL (6.5-8.0)
[2025-01-28 14:59] LABS: Thyroid Stimulating Hormone 1.01 uIU/mL (0.32-4.0)
== END 2025-01-28 11:16 | disposition home or self-care (01) ==
LOC: HO.CHCLDS 11:15
PROVIDERS: PCP Registered Nurse; Visit Provider Dietitian, Registered
DX: F39 Unspecified mood [affective] disorder (principal)
CPT/HCPCS: 36415; 80053; 80164; 84443; 85025